=== PATIENT | male | born 1960 | race American Indian/Alaskan Native ===

== ENCOUNTER 2017-03-02 09:07 | Inpatient (IN) | payer OTHER ==
[2017-03-02] MEDS ORDERED: NACL 0.9% 1000 ML 1,000 ML IV ONE (11:16)
[2017-03-02] MEDS ORDERED: ZOFRAN IV ONE (11:16)
[2017-03-02 12:56] LABS: Basophils % (Auto) 0.2 % (0.0-1.8); Eosinophils % (Auto) 0.2 % (0.0-4.3); Hematocrit 44.9 % (35.5-45.6); Hemoglobin 14.4 gm/dl (11.8-15.2); Lymphocytes # (Auto) 1.4 K/mm3 (1.2-5.4); Lymphocytes % (Auto) 10.7 % (13.4-35.0); Mean Corpuscular HGB Conc 32 % (32-34); Mean Corpuscular Hemoglobin 26 pg (28-32); Mean Corpuscular Volume 81 fl (84-94); Monocytes # (Auto) 1.5 K/mm3 (0.0-0.8); Monocytes % (Auto) 11.2 % (0.0-7.3); Red Blood Count 5.54 M/mm3 (3.65-5.03)
[2017-03-02 13:04] LABS: Platelet Count 95 K/mm3 (140-440); Red Cell Distribution Width 21.1 % (13.2-15.2)
[2017-03-02 13:06] LABS: INR 1.4 (0.87-1.13)
[2017-03-02 13:20] LABS: Alanine Aminotransferase 82 units/L (7-56); Albumin 2.8 g/dL (3.9-5); BUN/Creatinine Ratio 18; Bilirubin,Direct 4.2 mg/dL (0-0.2); Blood Urea Nitrogen 9 mg/dL (9-20); Calcium 10.7 mg/dL (8.4-10.2); Hemolysis Index 26
[2017-03-02 13:53] LABS: Bacteria,Urine 1+ /HPF (Negative); Bilirubin,Urine MOD (Negative); Blood,Urine NEG (Negative); Color,Urine Amber (Yellow); Granular Casts,Urine 12 /LPF; Mucus,Urine 3+ /HPF; Nitrite,Urine NEG (Negative)
[2017-03-02 13:55] LABS: Ictotest,Urine Negative (Negative)
--- NOTE | 2017-03-02 14:04 | Cat Scan Report ---
CT ABDOMEN PELVIS WITH CONTRAST: HISTORY: abdominal pain. COMPARISON: none. TECHNIQUE: Helical CT in 1.25mm intervals following IV contrast. Sagittal and coronal reconstructions. FINDINGS: Lung bases: Trace right pleural effusion. The aerated lungs are clear. Liver: The liver is mildly enlarged with diffuse heterogeneity. Multiple liver masses are identified which are coalescent in the right hepatic lobe and measure up to 11 cm in diameter. There is suggestion of mild underlying cirrhotic changes. Biliary system: The gallbladder is collapsed. No obvious cholelithiasis or biliary dilatation. Pancreas: Normal. Spleen: Normal. Kidneys/ureters/bladder: Normal. Adrenal glands: Normal. Aorta: Normal. Intestines: Unremarkable given no oral contrast was administered. No evidence for obstruction or focal inflammation. No obvious GI mass. Appendix: Normal. Pelvic viscera: Normal. Ascites: Moderate ascites is noted. Adenopathy: None. Musculoskeletal: Normal. IMPRESSION: Multiple large and small liver masses are suspected most consistent with a metastatic process. Primary liver cancer could also be considered. Ascites. Trace right pleural effusion.
--- NOTE | 2017-03-02 14:56 | Emergency Department Report ---
ED Abdominal Pain HPI - General Chief Complaint: Abdominal Pain Stated Complaint: CHEST PAIN Time Seen by Provider: 03/02/17 11:12 Source: patient Mode of arrival: Stretcher Limitations: No Limitations - History of Present Illness Initial Comments: She is a 56-year-old -[place] male who is presenting with abdominal distention. Patient states that 3 weeks ago he went to [facility] and thinks he may have gotten into some bad seafood. He had several days of nausea vomiting. Patient states the last several days has had some abdominal distention and some epigastric pain. Patient states that he's noticed that his eyes are now yellowing. Patient states the pain is nonradiating in the epigastrium and rates it as a 5 out of 10 in severity. Patient does state he's had some mild constipation as well but states his last bowel movement was today. Patient denies fever chills chest pain shortness of breath at this time. MD Complaint: abdominal pain Location: epigastric Severity scale (0 -10): 5 Quality: fullness - Related Data Allergies Allergy/AdvReac Type Severity Reaction Status Date / Time No Known Allergies Allergy Unverified 03/02/17 11:22 ED Review of Systems ROS: Stated complaint: CHEST PAIN Other details as noted in HPI Comment: All other systems reviewed and negative ED Physical Exam - General Limitations: No Limitations General appearance: alert, in no apparent distress - Head Head exam: Present: atraumatic, normocephalic - Eye Eye exam: Present: scleral icterus - ENT ENT exam: Present: mucous membranes moist - Neck Neck exam: Present: normal inspection - Respiratory Respiratory exam: Present: normal lung sounds bilaterally. Absent: respiratory distress, wheezes, rales, rhonchi - Cardiovascular Cardiovascular Exam: Present: regular rate, normal rhythm, tachycardia. Absent : systolic murmur, diastolic murmur, rubs, gallop - GI/Abdominal GI/Abdominal exam: Present: soft, distended, tenderness (epigastric), normal bowel sounds. Absent: guarding, rebound, rigid - Rectal Rectal exam: Present: deferred - Extremities Exam Extremities exam: Present: normal inspection - Back Exam Back exam: Present: normal inspection - Neurological Exam Neurological exam: Present: alert, oriented X3 - Psychiatric Psychiatric exam: Present: normal affect, normal mood - Skin Skin exam: Present: warm, dry, intact, normal color. Absent: rash ED Course Vital Signs 03/02/17 09:48 Temperature 98.1 F Pulse Rate 137 H Respiratory 28 H Rate Blood Pressure 144/103 O2 Sat by Pulse 97 Oximetry ED Medical Decision Making - Lab Data Result diagrams: 03/02/17 12:32 03/02/17 12:32 - EKG Data -: EKG Interpreted by Me - EKG Data Interpretation: other (EKG shows sinus tachycardia with a rate of 132, normal axis normal intervals and no ST segment elevation or depressions time of interpretation 1106) - Medical Decision Making Is a 56-year-old [place] male who is presenting with jaundice with hyperbilirubinemia. Patient will be admitted for further workup. Critical care attestation.: If time is entered above; I have spent that time in minutes in the direct care of this critically ill patient, excluding procedure time. ED Disposition Clinical Impression: Hyperbilirubinemia, Hepatitis Disposition: DC-01 TO HOME OR SELFCARE Is pt being admited?: Yes Does the pt Need Aspirin: No Condition: Serious Referrals: PRIMARY CARE, [Primary Care Provider] - 3-5 Days
[2017-03-02] MEDS ORDERED: NACL 0.9% 1000 ML 1,000 ML ONE (18:42)
[2017-03-02] MEDS: NACL 0.9% 1000 ML 1,000 ML IV SCH (19:06)
[2017-03-02] MEDS ORDERED: AMBIEN PO PRN (21:01)
[2017-03-02] MEDS: HEPARIN SUB-Q SCH (22:27)
[2017-03-02] MEDS: MORPHINE IV PRN (22:31)
--- NOTE | 2017-03-02 23:43 | History and Physical Report ---
History of Present Illness Date of examination: 03/02/17 Date of admission: 03/02/17 14:58 Chief complaint: See dictated H/p in reports History of present illness: See dictated H/p in reports Medications and Allergies Allergies Allergy/AdvReac Type Severity Reaction Status Date / Time No Known Allergies Allergy Unverified 03/02/17 11:22 Home Medications Medication Instructions Recorded Confirmed Last Taken Type No Known Home Medications [No 03/02/17 03/02/17 Unknown History Reported Home Medications] Active Meds: Active Medications Heparin Sodium (Porcine) (Heparin) 5,000 unit SUB-Q Q8HR ADRIANE Last Admin: 03/02/17 22:27 Dose: 5,000 unit Sodium Chloride (Nacl 0.9% 1000 Ml) 1,000 mls @ 125 mls/hr IV DIRECT ADRIANE Last Admin: 03/02/17 19:06 Dose: 125 mls/hr Morphine Sulfate (Morphine) 2 mg IV Q4H PRN PRN Reason: Pain, Moderate (4-6) Last Admin: 03/02/17 22:31 Dose: 2 mg Zolpidem Tartrate (Ambien) 5 mg PO QHS PRN PRN Reason: Sleep Exam - Constitutional Vitals: Temp Pulse Resp BP Pulse Ox 97.4 F L 124 H 20 115/78 95 03/02/17 19:57 03/02/17 19:57 03/02/17 22:31 03/02/17 19:57 03/02/17 19:57 Results - Labs CBC & Chem 7: 03/02/17 12:32 03/02/17 12:32 Labs: Laboratory Last Values WBC 13.0 K/mm3 (4.5-11.0) H 03/02/17 12:32 RBC 5.54 M/mm3 (3.65-5.03) H 03/02/17 12:32 Hgb 14.4 gm/dl (11.8-15.2) 03/02/17 12:32 Hct 44.9 % (35.5-45.6) 03/02/17 12:32 MCV 81 fl (84-94) L 03/02/17 12:32 MCH 26 pg (28-32) L 03/02/17 12:32 MCHC 32 % (32-34) 03/02/17 12:32 RDW 21.1 % (13.2-15.2) H 03/02/17 12:32 Plt Count 95 K/mm3 (140-440) L 03/02/17 12:32 Lymph % (Auto) 10.7 % (13.4-35.0) L 03/02/17 12:32 [place] % (Auto) 11.2 % (0.0-7.3) H 03/02/17 12:32 Eos % (Auto) 0.2 % (0.0-4.3) 03/02/17 12:32 Baso % (Auto) 0.2 % (0.0-1.8) 03/02/17 12: Lymph # 1.4 K/mm3 (1.2-5.4) 03/02/17 12: [place] # 1.5 K/mm3 (0.0-0.8) H 03/02/17 12:32 Eos # 0.0 K/mm3 (0.0-0.4) 03/02/17 12: Baso # 0.0 K/mm3 (0.0-0.1) 03/02/17 12:32 Seg Neutrophils % 77.7 % (40.0-70.0) H 03/02/17 12: Seg Neutrophils # 10.1 K/mm3 (1.8-7.7) H 03/02/17 12:32 PT 17.9 Sec. (12.2-14.9) H 03/02/17 12:32 INR 1.40 (0.87-1.13) H 03/02/17 12:32 Sodium 130 mmol/L (137-145) L 03/02/17 12:32 Potassium 5.4 mmol/L (3.6-5.0) H 03/02/17 12:32 Chloride 92.7 mmol/L (98-107) L 03/02/17 12:32 Carbon Dioxide 24 mmol/L (22-30) 03/02/17 12:32 Anion Gap 19 mmol/L 03/02/17 12:32 BUN 9 mg/dL (9-20) 03/02/17 12:32 Creatinine 0.5 mg/dL (0.8-1.5) L 03/02/17 12:32 Estimated GFR > 60 ml/min 03/02/17 12:32 BUN/Creatinine Ratio 18 % 03/02/17 12:32 Glucose 96 mg/dL (75-100) 03/02/17 12:32 Calcium 10.7 mg/dL (8.4-10.2) H 03/02/17 12:32 Total Bilirubin 6.10 mg/dL (0.1-1.2) H 03/02/17 12:32 Direct Bilirubin 4.2 mg/dL (0-0.2) H 03/02/17 12:32 Indirect Bilirubin 1.9 mg/dL 03/02/17 12:32 AST 369 units/L (5-40) H 03/02/17 12:32 ALT 82 units/L (7-56) H 03/02/17 12:32 Alkaline Phosphatase 194 units/L (35-129) H 03/02/17 12:32 Total Protein 7.0 g/dL (6.3-8.2) 03/02/17 12:32 Albumin 2.8 g/dL (3.9-5) L 03/02/17 12:32 Albumin/Globulin Ratio 0.7 % 03/02/17 12:32 Amylase 124 units/L (27-131) 03/02/17 12:32 Lipase 194 units/L (13-60) H 03/02/17 12:32 Urine Color [place]ola (Yellow) 03/02/17 Unknown Urine Turbidity Clear (Clear) 03/02/17 Unknown Urine pH 5.0 (5.0-7.0) 03/02/17 Unknown Ur Specific [place] 1.030 (1.003-1.030) 03/02/17 Unknown Urine Protein 100 mg/dl mg/dL (Negative) 03/02/17 Unknown Urine Glucose (UA) 50 mg/dL (Negative) 03/02/17 Unknown Urine Ketones Neg mg/dL (Negative) 03/02/17 Unknown Urine Blood Neg (Negative) 03/02/17 Unknown Urine Nitrite Neg (Negative) 03/02/17 Unknown Urine Bilirubin Mod (Negative) 03/02/17 Unknown Urine Ictotest Negative (Negative) 03/02/17 Unknown Urine Urobilinogen 4.0 mg/dL (<2.0) 03/02/17 Unknown Ur Leukocyte Esterase Neg (Negative) 03/02/17 Unknown Urine WBC (Auto) 14.0 /HPF (0.0-6.0) H 03/02/17 Unknown Urine RBC (Auto) 12.0 /HPF (0.0-6.0) 03/02/17 Unknown U Epithel Cells (Auto) 4.0 /HPF (0-13.0) 03/02/17 Unknown Urine Bacteria (Auto) 1+ /HPF (Negative) 03/02/17 Unknown Granular Casts 12 /LPF 03/02/17 Unknown Urine Mucus 3+ /HPF 03/02/17 Unknown
[2017-03-03] MEDS: HEPARIN SUB-Q SCH ×3 (06:27→21:55)
[2017-03-03 06:30] LABS: Hepatitis A Antibody IgM Non-Reactive (NonReactive); Hepatitis B Core IgM Non-Reactive (NonReactive); Hepatitis B Surface Antigen Non-Reactive (Negative); Hepatitis C Virus Antibody Reactive (NonReactive)
[2017-03-03] MEDS: MORPHINE IV PRN ×3 (08:15→21:56)
--- NOTE | 2017-03-03 10:52 | Progress Note ---
Assessment and Plan Assessment and plan: 56M W no significant pmh who pw n/v and jaundice found to have multiple liver masses liver masses appears to be related to a metastatic process oncology and GI consult, will need a biopsy biliary obstruction -appears to be due to liver masses, workup as above Hepatitis C infection GI consulted Hyperkalemia kayexalate x1 Thrombocytopenia stable, likely due to acute on chronic CLD Coagulopathy likely due to CLD, repeat levels, if still elevated, may rx with VItamin K htn urgency optmize meds Sepsis/UTI empiric abx, fup urine cx History Interval history: Review of systems Constitutional: No fevers, no malaise, no joint pains CVS: No chest pain, no orthopnea, no dyspnea on exertion, no pedal edema GI: No abdominal pain, no diarrhea, no vomiting, no constipation Respiratory: No shortness of breath, no wheezing, no coughing Hospitalist Physical - Physical exam Narrative exam: General.: Appears well, no distress, nontoxic HEENT: Moist mucous membranes, extraocular muscles intact, no lymphadenopathy, scleral icterus Neck: supple Cardiac: S1-S2 heard Lungs: clear to auscultation bilaterally Abdomen: soft , nontender, nondistended, bowel sounds positive Shifting dullness on abdominal exam Extremities: no edema clubbing or cyanosis Skin: no rash or lesions Neurologic: no gross focal deficits Psych: appropriate behavior, appropriate mood, corporative, judgment intact - Constitutional Vitals: Temp Pulse Resp BP Pulse Ox 98.2 F 120 H 18 143/91 97 03/03/17 07:53 03/03/17 07:53 03/03/17 07:53 03/03/17 07:53 03/03/17 07:53 Results - Labs CBC & Chem 7: 03/02/17 12:32 03/03/17 12:41 Labs: Laboratory Last Values WBC 13.0 K/mm3 (4.5-11.0) H 03/02/17 12:32 RBC 5.54 M/mm3 (3.65-5.03) H 03/02/17 12:32 Hgb 14.4 gm/dl (11.8-15.2) 03/02/17 12:32 Hct 44.9 % (35.5-45.6) 03/02/17 12:32 MCV 81 fl (84-94) L 03/02/17 12:32 MCH 26 pg (28-32) L 03/02/17 12:32 MCHC 32 % (32-34) 03/02/17 12:32 RDW 21.1 % (13.2-15.2) H 03/02/17 12:32 Plt Count 95 K/mm3 (140-440) L 03/02/17 12:32 Lymph % (Auto) 10.7 % (13.4-35.0) L 03/02/17 12:32 [place] % (Auto) 11.2 % (0.0-7.3) H 03/02/17 12:32 Eos % (Auto) 0.2 % (0.0-4.3) 03/02/17 12:32 Baso % (Auto) 0.2 % (0.0-1.8) 03/02/17 12:32 Lymph # 1.4 K/mm3 (1.2-5.4) 03/02/17 12: [place] # 1.5 K/mm3 (0.0-0.8) H 03/02/17 12:32 Eos # 0.0 K/mm3 (0.0-0.4) 03/02/17 12:32 Baso # 0.0 K/mm3 (0.0-0.1) 03/02/17 12:32 Seg Neutrophils % 77.7 % (40.0-70.0) H 03/02/17 12: Seg Neutrophils # 10.1 K/mm3 (1.8-7.7) H 03/02/17 12:32 PT 17.9 Sec. (12.2-14.9) H 03/02/17 12:32 INR 1.40 (0.87-1.13) H 03/02/17 12:32 Sodium 130 mmol/L (137-145) L 03/02/17 12:32 Potassium 5.4 mmol/L (3.6-5.0) H 03/02/17 12:32 Chloride 92.7 mmol/L (98-107) L 03/02/17 12:32 Carbon Dioxide 24 mmol/L (22-30) 03/02/17 12:32 Anion Gap 19 mmol/L 03/02/17 12:32 BUN 9 mg/dL (9-20) 01/12/18 12:32 Creatinine 0.5 mg/dL (0.8-1.5) L 03/02/17 12:32 Estimated GFR > 60 ml/min 03/02/17 12:32 BUN/Creatinine Ratio 18 % 03/02/17 12:32 Glucose 96 mg/dL (75-100) 03/02/17 12:32 Calcium 10.7 mg/dL (8.4-10.2) H 03/02/17 12:32 Total Bilirubin 6.10 mg/dL (0.1-1.2) H 03/02/17 12:32 Direct Bilirubin 4.2 mg/dL (0-0.2) H 03/02/17 12:32 Indirect Bilirubin 1.9 mg/dL 03/02/17 12:32 AST 369 units/L (5-40) H 03/02/17 12:32 ALT 82 units/L (7-56) H 03/02/17 12:32 Alkaline Phosphatase 194 units/L (35-129) H 03/02/17 12:32 Total Protein 7.0 g/dL (6.3-8.2) 03/02/17 12:32 Albumin 2.8 g/dL (3.9-5) L 03/02/17 12:32 Albumin/Globulin Ratio 0.7 % 03/02/17 12:32 Amylase 124 units/L (27-131) 03/02/17 12:32 Lipase 194 units/L (13-60) H 03/02/17 12:32 Urine Color Lola (Yellow) 03/02/17 Unknown Urine Turbidity Clear (Clear) 03/02/17 Unknown Urine pH 5.0 (5.0-7.0) 03/02/17 Unknown Ur Specific [place] 1.030 (1.003-1.030) 03/02/17 Unknown Urine Protein 100 mg/dl mg/dL (Negative) 03/02/17 Unknown Urine Glucose (UA) 50 mg/dL (Negative) 03/02/17 Unknown Urine Ketones Neg mg/dL (Negative) 03/02/17 Unknown Urine Blood Neg (Negative) 03/02/17 Unknown Urine Nitrite Neg (Negative) 03/02/17 Unknown Urine Bilirubin Mod (Negative) 03/02/17 Unknown Urine Ictotest Negative (Negative) 03/02/17 Unknown Urine Urobilinogen 4.0 mg/dL (<2.0) 03/02/17 Unknown Ur Leukocyte Esterase Neg (Negative) 03/02/17 Unknown Urine WBC (Auto) 14.0 /HPF (0.0-6.0) H 03/02/17 Unknown Urine RBC (Auto) 12.0 /HPF (0.0-6.0) 03/02/17 Unknown U Epithel Cells (Auto) 4.0 /HPF (0-13.0) 03/02/17 Unknown Urine Bacteria (Auto) 1+ /HPF (Negative) 03/02/17 Unknown Granular Casts 12 /LPF 03/02/17 Unknown Urine Mucus 3+ /HPF 03/02/17 Unknown Hepatitis A IgM Ab Non-reactive (NonReactive) 03/03/17 05:28 Hep Bs Antigen Non-reactive (Negative) 03/03/17 05:28 Hep B Core IgM Ab Non-reactive (NonReactive) 03/03/17 05:28 Hepatitis C Antibody Reactive (NonReactive) A 03/03/17 05:28
[2017-03-03] MEDS ORDERED: ROCEPHIN/NS 1 GM/50 ML 1 GM/50 ML BAG IV SCH (11:00)
[2017-03-03] MEDS ORDERED: Fluarix Quad 2017-2018(36 MOS+ IM ONE (12:00)
[2017-03-03] MEDS ORDERED: KIONEX PO ONE (13:30)
[2017-03-03] MEDS: cefTRIAXone 1 GM in NACL 0.9% 20 ML IV SCH (13:41)
--- NOTE | 2017-03-03 17:47 | Hem/Onc Consultation ---
History of Present Illness - Reason for Consult Consult date: 03/03/17 liver masses - History of Present Illness Mr. Medina is a 56 yom with no significant PHMx who presented to [facility] with chest pain, jaundice, and constipation, found to have large intrahepatic masses on CT scan. Bilirubin is elevated, albumin and platelets are decreased. Mr Medina's pain feels better after treatment. He has a history of regular EtOH use, 2-3 drinks per day until 5 weeks ago. Hepatitis C antibody is reactive. 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 He has no known family history of cancer. Medications and Allergies Allergies Allergy/AdvReac Type Severity Reaction Status Date / Time No Known Allergies Allergy Unverified 03/02/17 11:22 Home Medications Medication Instructions Recorded Confirmed Last Taken Type No Known Home Medications [No 03/02/17 03/02/17 Unknown History Reported Home Medications] Active Meds: Active Medications Heparin Sodium (Porcine) (Heparin) 5,000 unit SUB-Q Q8HR [facility] Last Admin: 03/03/17 14:26 Dose: 5,000 unit Hydralazine HCl (Apresoline) 10 mg IV Q4H PRN PRN Reason: BP >160/100 Sodium Chloride (Nacl 0.9% 1000 Ml) 1,000 mls @ 125 mls/hr IV DIRECT [facility] Last Admin: 03/02/17 19:06 Dose: 125 mls/hr Ceftriaxone Sodium 1 gm/ (Sodium Chloride) 20 mls @ 20 mls/10 min IV Q24H ADRIANE Last Admin: 03/03/17 13:41 Dose: 20 mls/10 min Morphine Sulfate (Morphine) 2 mg IV Q4H PRN PRN Reason: Pain, Moderate (4-6) Last Admin: 03/03/17 08:15 Dose: 2 mg Zolpidem Tartrate (Ambien) 5 mg PO QHS PRN PRN Reason: Sleep Last Admin: 03/03/17 01:28 Dose: 5 mg Review of Systems Constitutional: fatigue Cardiovascular: chest pain Respiratory: no shortness of breath Gastrointestinal: abdominal pain, constipation, no nausea Musculoskeletal: no myalgias Integumentary: no rash Neurological: no confusion Exam - Constitutional Vitals: Last Vital Signs Temp 97.7 F 03/03/17 15:27 Pulse 120 H 03/03/17 07:53 Resp 18 03/03/17 15:27 BP 156/102 03/03/17 15:27 Pulse Ox 97 03/03/17 07:53 General appearance: no acute distress - Neck Neck: supple - Respiratory Respiratory effort: Positive: normal Respiratory: bilateral: CTA - Cardiovascular Rhythm: regular - Gastrointestinal General gastrointestinal: Present: other (rotund) - Integumentary Integumentary: warm, dry - Neurologic Neurologic: no focal deficits Results - Labs lab Results: Laboratory Results - last 24 hr 03/03/17 03/03/17 05:28 12:41 Potassium 6.0 H Hepatitis A IgM Ab Non-reactive Hep Bs Antigen Non-reactive Hep B Core IgM Ab Non-reactive Hepatitis C Antibody Reactive A - Imaging and cardiology CT scan - abdomen: report reviewed Assessment and Plan 1. Liver masses- appearance c/w metastatic disease, discussed this with Mr Medina. Will order CT chest, CEA, CA-19-9, AFP. Plan for CT guided biopsy of liver lesion, can reverse INR with FFP if necessary. Agree with GI consult for workup of primary lesion.
--- NOTE | 2017-03-03 18:45 | Gastroenterology Consultation ---
History of Present Illness - Reason for Consult Consult date: 03/03/17 Liver Masses Requesting physician: MARY RIOS - History of Present Illness The patient is a 56 yo male who came to the ER for abdominal distention, fatigue , and mild discomfort. He was noted to have ascites, and a CT scan was done. This showed what appears to be diffuse metastatic disease in the liver. He also had hepatitis screening done, and is HCV positive. Chest imaging is pending, but the A/P did not show any primary source of the tumor. He has never had an upper or lower endoscopy, and admit he rarely goes to a physician. Past History Past Medical History: hepatitis (New dx HCV) Past Surgical History: No surgical history Social history: smoking Family history: no significant family history Medications and Allergies Allergies Allergy/AdvReac Type Severity Reaction Status Date / Time No Known Allergies Allergy Unverified 03/02/17 11:22 Home Medications Medication Instructions Recorded Confirmed Last Taken Type No Known Home Medications [No 03/02/17 03/02/17 Unknown History Reported Home Medications] Active Meds: Active Medications Heparin Sodium (Porcine) (Heparin) 5,000 unit SUB-Q Q8HR [facility] Last Admin: 03/03/17 14:26 Dose: 5,000 unit Hydralazine HCl (Apresoline) 10 mg IV Q4H PRN PRN Reason: BP >160/100 Sodium Chloride (Nacl 0.9% 1000 Ml) 1,000 mls @ 125 mls/hr IV DIRECT ADRIANE Last Admin: 03/02/17 19:06 Dose: 125 mls/hr Ceftriaxone Sodium 1 gm/ (Sodium Chloride) 20 mls @ 20 mls/10 min IV Q24H [facility] Last Admin: 03/03/17 13:41 Dose: 20 mls/10 min Morphine Sulfate (Morphine) 2 mg IV Q4H PRN PRN Reason: Pain, Moderate (4-6) Last Admin: 03/03/17 08:15 Dose: 2 mg Zolpidem Tartrate (Ambien) 5 mg PO QHS PRN PRN Reason: Sleep Last Admin: 03/03/17 01:28 Dose: 5 mg I HAVE REVIEWED AND RECONCILED THE MEDICATIONS Review of Systems - Review of Systems All systems: negative (as noted in the HPI.) Exam - Constitutional Vital Signs: Temp Pulse Resp BP Pulse Ox 97.7 F 120 H 18 156/102 97 03/03/17 15:27 03/03/17 07:53 03/03/17 15:27 03/03/17 15:27 03/03/17 07:53 General appearance: no acute distress - EENT Eyes: PERRL, EOM intact, scleral icterus ENT: hearing intact, clear oral mucosa - Neck Neck: supple, normal ROM - Respiratory Respiratory effort: normal Respiratory: bilateral: CTA - Cardiovascular Rhythm: regular Heart Sounds: Present: S1 & S2 Extremities: no ischemia, No edema - Gastrointestinal General gastrointestinal: Present: soft, non-tender, distended (Moderate ascites ) - Integumentary Integumentary: Present: clear, warm, dry - Neurologic Neurological: alert and oriented x3 - Labs CBC & Chem 7: 03/02/17 12:32 03/03/17 12:41 Lab Results: Laboratory Results - last 24 hr 03/03/17 03/03/17 05:28 12:41 Potassium 6.0 H Hepatitis A IgM Ab Non-reactive Hep Bs Antigen Non-reactive Hep B Core IgM Ab Non-reactive Hepatitis C Antibody Reactive A Assessment and Plan - Patient Problems (1) Liver masses Current Visit: Yes Status: Acute Plan to address problem: - Multiple liver masses with ascites, likely malignancy based on appearance. - No obvious primary, so will get EGD/colon on Sunday (switch to clears in the AM). - However if chest CT shows obvious primary, or if the AFP is markedly elevated , no role for EGD/colonoscopy. (2) Hepatitis C antibody positive in blood Current Visit: Yes Status: Acute Plan to address problem: - Noted, but no role for treatment until hepatic lesions worked up further. (3) Ascites Current Visit: Yes Status: Acute Plan to address problem: - Also had HTN, and will start Maxzide as this will treat both problems.
[2017-03-03] MEDS: NACL 0.9% 1000 ML 1,000 ML IV SCH (20:43)
--- NOTE | 2017-03-03 23:05 | Cat Scan Report ---
FINAL REPORT EXAM: CT CHEST WO CON HISTORY: liver masses, staging COMPARISON: CT of the abdomen pelvis February 2017. TECHNIQUE: Contiguous axial images were obtained. Additional sagittal and coronal reformatted images were obtained. FINDINGS: Heart borderline to mildly enlarged. Ascending thoracic aorta measures 3.7 centimeters in diameter. Mild calcification of the thoracic aorta. There are enlarged intrathoracic lymph nodes. For example there is a right paratracheal lymph node measuring 13 x 13 millimeters. No enlarged axillary lymph nodes. Visualized thyroid gland is unremarkable. Tracheobronchial tree is patent. At the medial margin right lower lobe there is a noncalcified nodule measuring 7 millimeters. Just inferior to this there is a 2nd nodule measuring 8 millimeters. At the medial inferior margin left lower lobe there is a nodule measuring 10 x 6 millimeters. Mild elevation right hemidiaphragm. Nonspecific linear consolidation right middle lobe and right lower lobe which may reflect compressive atelectasis. Trace right-sided pleural effusion. Small to moderate amount of free fluid in the upper abdomen. Stable enlargement of the liver. Hepatic lesions seen on prior exam with IV contrast are not well delineated on this noncontrast exam. Please see recent CT abdomen pelvis further details. Bony thorax is grossly intact. Tiny hiatal hernia. IMPRESSION: There are least 2-3 nodules at the lung bases of uncertain etiology. Given the patient's history of multiple hepatic masses, this is concerning for pulmonary metastatic disease. There also enlarged intrathoracic lymph nodes which may be reactive or neoplastic. Nonspecific linear consolidations of the right lower lobe and right middle lobe which may reflect compressive atelectasis given the elevation right hemidiaphragm. Trace right-sided pleural effusion. Partial visualization of enlarged liver and small to moderate amount of free fluid in the upper abdomen. Please see CT of the abdomen pelvis from yesterday for further details of the patient's known liver masses.
[2017-03-04] MEDS: MORPHINE IV PRN ×5 (02:40→20:50)
[2017-03-04] MEDS: APRESOLINE IV PRN ×2 (04:32→23:44)
[2017-03-04] MEDS: NACL 0.9% 1000 ML 1,000 ML IV SCH ×2 (04:36→16:47)
[2017-03-04] MEDS: HEPARIN SUB-Q SCH ×3 (05:26→22:58)
[2017-03-04 07:00] LABS: Basophils % (Auto) 0.2 % (0.0-1.8); Eosinophils # (Auto) 0.1 K/mm3 (0.0-0.4); Eosinophils % (Auto) 0.5 % (0.0-4.3); Hemoglobin 13.2 gm/dl (11.8-15.2); Lymphocytes # (Auto) 1.3 K/mm3 (1.2-5.4); Lymphocytes % (Auto) 11.6 % (13.4-35.0); Mean Corpuscular HGB Conc 33 % (32-34); Mean Corpuscular Hemoglobin 27 pg (28-32); Mean Corpuscular Volume 81 fl (84-94); Monocytes # (Auto) 1.3 K/mm3 (0.0-0.8); Monocytes % (Auto) 12.1 % (0.0-7.3); Red Blood Count 4.96 M/mm3 (3.65-5.03)
[2017-03-04 07:04] LABS: Platelet Count 89 K/mm3 (140-440)
[2017-03-04 07:09] LABS: INR 1.39 (0.87-1.13)
[2017-03-04 07:10] LABS: Partial Thromboplastin Time 28.2 Sec. (24.2-36.6)
[2017-03-04 07:12] LABS: Alanine Aminotransferase 85 units/L (7-56); Albumin 2.5 g/dL (3.9-5); BUN/Creatinine Ratio 20; Blood Urea Nitrogen 8 mg/dL (9-20); Calcium 10.3 mg/dL (8.4-10.2); Hemolysis Index 4
--- NOTE | 2017-03-04 07:41 | Progress Note ---
Assessment and Plan Assessment and plan: 56M W no significant pmh who pw n/v and jaundice found to have multiple liver masses liver masses appears to be related to a metastatic process oncology and GI consult appreciated, will need a biopsy CT chest, image reviewed, 3 pulmonary nodules appear to be metastatic -for egd and cscope tomorrow, and will plan for liver biopsy on Sunday biliary obstruction -appears to be due to liver masses, workup as above Hepatitis C infection GI consulted Hyperkalemia kayexalate x1, now resolved Thrombocytopenia stable, likely due to acute on chronic CLD Coagulopathy likely due to CLD, mild and stable htn urgency optmize meds, improved Sepsis/UTI empiric abx, fup urine cx History Interval history: Review of systems Constitutional: No fevers, no malaise, no joint pains CVS: No chest pain, no orthopnea, no dyspnea on exertion, no pedal edema GI: No abdominal pain, no diarrhea, no vomiting, no constipation Respiratory: No shortness of breath, no wheezing, no coughing Hospitalist Physical - Physical exam Narrative exam: General.: Appears well, no distress, nontoxic HEENT: Moist mucous membranes, extraocular muscles intact, no lymphadenopathy, scleral icterus Neck: supple Cardiac: S1-S2 heard Lungs: clear to auscultation bilaterally Abdomen: soft , nontender, nondistended, bowel sounds positive Shifting dullness on abdominal exam Extremities: no edema clubbing or cyanosis Skin: no rash or lesions Neurologic: no gross focal deficits Psych: appropriate behavior, appropriate mood, corporative, judgment intact - Constitutional Vitals: Temp Pulse Resp BP Pulse Ox 98.1 F 117 H 18 123/67 96 03/04/17 04:21 03/04/17 04:32 03/04/17 04:21 03/04/17 05:24 03/04/17 04:22 Results - Labs CBC & Chem 7: 03/04/17 06:00 03/04/17 06:00 Labs: Laboratory Last Values WBC 10.8 K/mm3 (4.5-11.0) 03/04/17 06:00 RBC 4.96 M/mm3 (3.65-5.03) 03/04/17 06:00 Hgb 13.2 gm/dl (11.8-15.2) 03/04/17 06:00 Hct 40.0 % (35.5-45.6) 03/04/17 06:00 MCV 81 fl (84-94) L 03/04/17 06:00 MCH 27 pg (28-32) L 03/04/17 06:00 MCHC 33 % (32-34) 03/04/17 06:00 RDW 21.0 % (13.2-15.2) H 03/04/17 06:00 Plt Count 89 K/mm3 (140-440) L 03/04/17 06:00 Lymph % (Auto) 11.6 % (13.4-35.0) L 03/04/17 06:00 [place] % (Auto) 12.1 % (0.0-7.3) H 03/04/17 06:00 Eos % (Auto) 0.5 % (0.0-4.3) 03/04/17 06:00 Baso % (Auto) 0.2 % (0.0-1.8) 03/04/17 06:00 Lymph # 1.3 K/mm3 (1.2-5.4) 03/04/17 06:00 [place] # 1.3 K/mm3 (0.0-0.8) H 03/04/17 06:00 Eos # 0.1 K/mm3 (0.0-0.4) 03/04/17 06:00 Baso # 0.0 K/mm3 (0.0-0.1) 03/04/17 06:00 Seg Neutrophils % 75.6 % (40.0-70.0) H 03/04/17 06:00 Seg Neutrophils # 8.2 K/mm3 (1.8-7.7) H 03/04/17 06:00 PT 17.8 Sec. (12.2-14.9) H 03/04/17 06:00 INR 1.39 (0.87-1.13) H 03/04/17 06:00 APTT 28.2 Sec. (24.2-36.6) 03/04/17 06:00 Sodium 128 mmol/L (137-145) L 03/04/17 06:00 Potassium 4.9 mmol/L (3.6-5.0) 03/04/17 06:00 Chloride 92.4 mmol/L (98-107) L 03/04/17 06:00 Carbon Dioxide 23 mmol/L (22-30) 03/04/17 06:00 Anion Gap 18 mmol/L 03/04/17 06:00 BUN 8 mg/dL (9-20) L 03/04/17 06:00 Creatinine 0.4 mg/dL (0.8-1.5) L 03/04/17 06:00 Estimated GFR > 60 ml/min 03/04/17 06:00 BUN/Creatinine Ratio 20 % 03/04/17 06:00 Glucose 95 mg/dL (75-100) 03/04/17 06:00 Calcium 10.3 mg/dL (8.4-10.2) H 03/04/17 06:00 Total Bilirubin 6.50 mg/dL (0.1-1.2) H 03/04/17 06:00 Direct Bilirubin 5.0 mg/dL (0-0.2) H 03/04/17 06:00 Indirect Bilirubin 1.5 mg/dL 03/04/17 06:00 AST 370 units/L (5-40) H 03/04/17 06:00 ALT 85 units/L (7-56) H 03/04/17 06:00 Alkaline Phosphatase 183 units/L (35-129) H 03/04/17 06:00 Total Protein 6.7 g/dL (6.3-8.2) 03/04/17 06:00 Albumin 2.5 g/dL (3.9-5) L 03/04/17 06:00 Albumin/Globulin Ratio 0.6 % 03/04/17 06:00 Amylase 124 units/L (27-131) 03/02/17 12:32 Lipase 194 units/L (13-60) H 03/02/17 12:32 Urine Color [place]ola (Yellow) 03/02/17 Unknown Urine Turbidity Clear (Clear) 03/02/17 Unknown Urine pH 5.0 (5.0-7.0) 03/02/17 Unknown Ur Specific [place] 1.030 (1.003-1.030) 03/02/17 Unknown Urine Protein 100 mg/dl mg/dL (Negative) 03/02/17 Unknown Urine Glucose (UA) 50 mg/dL (Negative) 03/02/17 Unknown Urine Ketones Neg mg/dL (Negative) 03/02/17 Unknown Urine Blood Neg (Negative) 03/02/17 Unknown Urine Nitrite Neg (Negative) 03/02/17 Unknown Urine Bilirubin Mod (Negative) 03/02/17 Unknown Urine Ictotest Negative (Negative) 03/02/17 Unknown Urine Urobilinogen 4.0 mg/dL (<2.0) 03/02/17 Unknown Ur Leukocyte Esterase Neg (Negative) 03/02/17 Unknown Urine WBC (Auto) 14.0 /HPF (0.0-6.0) H 03/02/17 Unknown Urine RBC (Auto) 12.0 /HPF (0.0-6.0) 03/02/17 Unknown U Epithel Cells (Auto) 4.0 /HPF (0-13.0) 03/02/17 Unknown Urine Bacteria (Auto) 1+ /HPF (Negative) 03/02/17 Unknown Granular Casts 12 /LPF 03/02/17 Unknown Urine Mucus 3+ /HPF 03/02/17 Unknown Hepatitis A IgM Ab Non-reactive (NonReactive) 03/03/17 05:28 Hep Bs Antigen Non-reactive (Negative) 03/03/17 05:28 Hep B Core IgM Ab Non-reactive (NonReactive) 03/03/17 05:28 Hepatitis C Antibody Reactive (NonReactive) A 03/03/17 05:28
[2017-03-04] MEDS: MAXZIDE-25 PO SCH (09:49)
[2017-03-04] MEDS ORDERED: VITAMIN K (ADULT ONLY) ONE (09:55)
[2017-03-04] MEDS: VITAMIN K (ADULT ONLY) SUB-Q SCH (10:00)
[2017-03-04] MEDS: cefTRIAXone 1 GM in NACL 0.9% 20 ML IV SCH (12:03)
--- NOTE | 2017-03-04 18:10 | Hem/Onc Progress Note ---
Assessment and Plan 1. liver masses- likely metastatic disease. Chest CT with small lung nodules, paratracheal node. PET scan outpatient will help determine if these areas are malignant. Endoscopy tomorrow, liver biopsy Sunday. Tumor markers pending. Subjective Date of service: 03/04/17 Interval history: ongoing prep for endoscopy tomorrow. + bloating. Objective - Constitutional Vitals: Last Vital Signs Temp 97.8 F 03/04/17 15:39 Pulse 135 H 03/04/17 15:39 Resp 22 03/04/17 15:39 BP 145/99 03/04/17 15:39 Pulse Ox 96 03/04/17 15:39 General appearance: no acute distress - Neck Neck: supple - Cardiovascular Rhythm: regular - Gastrointestinal General gastrointestinal: Present: other (ascites) - Integumentary Integumentary: warm, dry - Neurologic Neurologic: moves all extremities - Labs Lab Results: Laboratory Results - last 24 hr 03/04/17 03/04/17 03/04/17 06:00 06:00 06:00 WBC 10.8 RBC 4.96 Hgb 13.2 Hct 40.0 MCV 81 L MCH 27 L MCHC 33 RDW 21.0 H Plt Count 89 L Lymph % (Auto) 11.6 L [place] % (Auto) 12.1 H Eos % (Auto) 0.5 Baso % (Auto) 0.2 Lymph # 1.3 [place] # 1.3 H Eos # 0.1 Baso # 0.0 Seg Neutrophils % 75.6 H Seg Neutrophils # 8.2 H PT 17.8 H INR 1.39 H APTT 28.2 Sodium 128 L Potassium 4.9 Chloride 92.4 L Carbon Dioxide 23 Anion Gap 18 BUN 8 L Creatinine 0.4 L Estimated GFR > 60 BUN/Creatinine Ratio 20 Glucose 95 Calcium 10.3 H Total Bilirubin 6.50 H Direct Bilirubin 5.0 H Indirect Bilirubin 1.5 AST 370 H ALT 85 H Alkaline Phosphatase 183 H Total Protein 6.7 Albumin 2.5 L Albumin/Globulin Ratio 0.6
[2017-03-04] MEDS ORDERED: GOLYTELY PO ONE (20:00)
--- NOTE | 2017-03-04 20:24 | Gastroenterology Progress Note ---
Assessment and Plan - Patient Problems (1) Liver masses Current Visit: Yes Status: Acute Plan to address problem: - Multiple liver masses with ascites, likely malignancy based on appearance. - No obvious primary, so will get EGD/colon on Sunday (switch to clears in the AM). - CT chest has LN, but no obvious primary. - EGD/colon will be for diagnostic purposes only given mild coagulopathy (can do biopsies of masses, but would avoid polypectomy). (2) Hepatitis C antibody positive in blood Current Visit: Yes Status: Acute Plan to address problem: - Noted, but no role for treatment until hepatic lesions worked up further. (3) Ascites Current Visit: Yes Status: Acute Plan to address problem: - Also had HTN, and will continue Maxzide as this will treat both problems. - Sodium down somewhat and will need to be monitored. Subjective Date of service: 03/04/17 Principal diagnosis: Abnormal CT Liver Interval history: The patient is stable without abdominal pain or N/V. He is anxious to obtain biopsies for underlying disease. Objective - Constitutional Vitals: Temp Pulse Resp BP Pulse Ox 97.8 F 135 H 22 145/99 96 03/04/17 15:39 03/04/17 15:39 03/04/17 15:39 03/04/17 15:39 03/04/17 15:39 General appearance: no acute distress - Respiratory Respiratory effort: normal Respiratory: bilateral: CTA - Cardiovascular Rhythm: regular Heart Sounds: Present: S1 & S2 - Gastrointestinal General gastrointestinal: Present: soft, non-tender, distended (Moderate ascites ) - Labs CBC & Chem 7: 03/04/17 06:00 03/04/17 06:00 Labs: Laboratory Results - last 24 hr 03/04/17 03/04/17 03/04/17 06:00 06:00 06:00 WBC 10.8 RBC 4.96 Hgb 13.2 Hct 40.0 MCV 81 L MCH 27 L MCHC 33 RDW 21.0 H Plt Count 89 L Lymph % (Auto) 11.6 L [place] % (Auto) 12.1 H Eos % (Auto) 0.5 Baso % (Auto) 0.2 Lymph # 1.3 [place] # 1.3 H Eos # 0.1 Baso # 0.0 Seg Neutrophils % 75.6 H Seg Neutrophils # 8.2 H PT 17.8 H INR 1.39 H APTT 28.2 Sodium 128 L Potassium 4.9 Chloride 92.4 L Carbon Dioxide 23 Anion Gap 18 BUN 8 L Creatinine 0.4 L Estimated GFR > 60 BUN/Creatinine Ratio 20 Glucose 95 Calcium 10.3 H Total Bilirubin 6.50 H Direct Bilirubin 5.0 H Indirect Bilirubin 1.5 AST 370 H ALT 85 H Alkaline Phosphatase 183 H Total Protein 6.7 Albumin 2.5 L Albumin/Globulin Ratio 0.6
[2017-03-05] MEDS: HEPARIN SUB-Q SCH ×3 (05:50→22:37)
[2017-03-05] MEDS ORDERED: WATER FOR IRRIG STERILE IR ONE (08:13)
--- NOTE | 2017-03-05 08:47 | Hem/Onc Progress Note ---
Assessment and Plan He is to get GI workup today and liver biopsy tomorrow. Patient also has positive hepatitis C. Awaiting tumor markers also. Subjective Date of service: 03/05/17 Interval history: Patient without any new complaints. Objective - Constitutional Vitals: Last Vital Signs Temp 98.4 F 03/05/17 07:55 Pulse 123 H 03/05/17 07:55 Resp 18 03/05/17 07:55 BP 149/91 03/05/17 07:55 Pulse Ox 97 03/05/17 07:55 Pain Intensity (0-10): denies any pain General appearance: no acute distress Performance status: 3-limited selfcare - Neck Neck: supple - Respiratory Respiratory effort: Positive: normal Respiratory: bilateral: diminished - Cardiovascular Rhythm: regular - Gastrointestinal General gastrointestinal: Present: distended
[2017-03-05] MEDS: NACL 0.9% 1000 ML 1,000 ML IV SCH (09:06)
[2017-03-05] MEDS ORDERED: DIPRIVAN 10 MG/ML IV ONE ×3 (09:48→09:49)
--- NOTE | 2017-03-05 09:56 | Anesthesia Consultation ---
Anesthesia Consult and Med Hx Date of service: 03/05/17 - Airway Anesthetic Teeth Evaluation: Good ROM Head & Neck: Adequate Mental/Hyoid Distance: Adequate Mallampati Class: Class II Intubation Access Assessment: Probably Good - Pre-Operative Health Status ASA Pre-Surgery Classification: ASA3 Proposed Anesthetic Plan: MAC - Pulmonary Hx Asthma: No COPD: No Hx Pneumonia: No - Cardiovascular System Hx Hypertension: Yes - Endocrine Hx End Stage Renal Disease: No Hx Liver Disease: Yes (hepatitis, liver mass?) - Other Systems Hx Obesity: Yes (BMI 39.6)
--- NOTE | 2017-03-05 09:57 | Anesthesia Day of Surgery ---
Anesthesia Day of Surgery - Day of Surgery Patient Examined: Yes Patient H&P Reviewed: Yes Patient is NPO: Yes
[2017-03-05] MEDS ORDERED: ADRENALIN ONE (10:14)
--- NOTE | 2017-03-05 10:48 | Operative Report ---
Operative Report Operative Report: Date of procedure: 03/05/2017 Procedure: Esophagogastroduodenoscopy with biopsies of the antrum for H. pylori Preprocedure diagnosis: Hepatic masses suggestive of metastatic cancer. Rule out gastric cancer. History of cirrhosis. Post procedure diagnosis: 1+ esophageal varices. Mild erosive antral gastritis. Multiple shallow duodenal bulb ulcers. Endoscopist: Dr. Rm Anesthesia: Monitored anesthesia care per anesthesia department Medications: Propofol per anesthesia Estimated blood loss: 0 After careful discussion of the nature and purpose of the procedure as well as details the technique risks benefits and alternatives consent was obtained. The patient was placed in the left lateral decubitus position and medicated per anesthesia. The tip of the [employer] EQ 570 video scope was passed per orum under direct vision into the esophagus and advanced into the stomach and descending duodenum. The proximal descending duodenum and the duodenal bulb revealed multiple shallow ulcers and erosions. No deep ulcers or visible vessels were present. The pylorus was symmetrical and normal. The scope was withdrawn into the stomach and the stomach then gently insufflated with air. The antrum revealed multiple punctate erosions but no deep ulcers. Biopsies were taken to assess for possible H. pylori infection. The stomach was further insufflated and the scope was then retroflexed and partially withdrawn. The cardia, fundus, and body of the stomach were within normal limits and easily distensible.The scope was then withdrawn in the forward position. The esophagogastric junction was at 42 cm. There were multiple small varices in the distal third of the esophagus, 1+ in size which disappeared with insufflation of the esophageal body. The esophageal body was otherwise normal throughout. The procedure was was well tolerated and the patient was observed in recovery. Impressions: 1+ esophageal varices. Erosive antral gastritis, mild. Erosive duodenitis, moderate. No suggestion of neoplastic disease. Plan: Await pathology. Further evaluation with colonoscopy. Electronically signed: Ramesh Rm MD
--- NOTE | 2017-03-05 10:52 | Operative Report ---
Operative Report Operative Report: Date of procedure: 03/05/2017 Preprocedure diagnosis: Metastatic disease to the liver by CT scan, rule out colon cancer Post procedure diagnosis: 3 medium to large size polyps which do not suggest malignancy by appearance Procedure: Colonoscopy to the cecum with snare polypectomy 3, 1 with epinephrine injection. Endoscopist: Dr. Rm Anesthesia: Monitored anesthesia care per anesthesia department Estimated blood loss: 0 Medications: Monitored anesthesia care. See separate report by anesthesia for details. After careful discussion of the nature and purpose of the procedure as well as details of the technique risks benefits and alternatives the patient gave consent. Please see recent history and physical from the office. The patient was placed in the left lateral decubitus position and medicated per anesthesia. A rectal exam was performed sphincter tone was normal there were no masses palpable. The [employer] 570 scope was passed transanally and advanced under continuous direct vision without difficulty to the cecum. The colon was well prepared. The colonic mucosa was notably edematous throughout. The cecum was normal. The ascending colon revealed a 7 mm pedunculated polyp. The polyp was removed with snare electrocautery without difficulty. No bleeding was encountered. The ascending colon otherwise was normal and on forward and retroflexed views. The transverse colon was normal. There was a 1 cm polyp on a short stalk in the descending colon. The polyp was removed with snare electrocautery without difficulty. No bleeding was encountered. There was a 1.5 cm polyp on a long, thick stalk present in the sigmoid colon. It was elected to inject the polyp stalk with 1 mL of 1-10,000 epinephrine in light of the risk of bleeding from a thick stalk. The polyp was then removed with snare electrocautery without difficulty. No bleeding was encountered. The rectum was normal on forward and retroflexed views. The procedure was well-tolerated overall and the patient was observed in recovery. Conclusions: 3 polyps, medium size. None with a suggestion of malignancy by appearance. Status post polypectomy 3 with 1 requiring epinephrine injection Plan: Await pathology, however I would recommend proceeding with CT guided biopsy of the liver masses as these polyps do not suggest malignancy. Signed electronically: Ramesh Rm M.D.
--- NOTE | 2017-03-05 13:12 | Progress Note ---
Assessment and Plan Assessment and plan: 56M W no significant pmh who pw n/v and jaundice found to have multiple liver masses liver masses appears to be related to a metastatic process oncology and GI consult appreciated, will need a biopsy CT chest, image reviewed, 3 pulmonary nodules appear to be metastatic -sp egd and cscope which was unrevealing -for liver biopsy and paracentesis-w cytology tomorrow -may be multifocal HCC given hep C Ascites for paracentesis with fluid analysis and cytology tomorrow dc ivf biliary obstruction -appears to be due to liver masses, workup as above Hepatitis C infection GI consulted Hyperkalemia kayexalate x1, now resolved Thrombocytopenia stable, likely due to acute on chronic CLD Coagulopathy likely due to CLD, mild and stable htn urgency optmize meds, improved Sepsis/UTI empiric abx, fup urine cx History Interval history: Review of systems Constitutional: No fevers, no malaise, no joint pains CVS: No chest pain, no orthopnea, no dyspnea on exertion, no pedal edema GI: No abdominal pain, no diarrhea, no vomiting, no constipation Respiratory: No shortness of breath, no wheezing, no coughing Hospitalist Physical - Physical exam Narrative exam: General.: Appears well, no distress, nontoxic HEENT: Moist mucous membranes, extraocular muscles intact, no lymphadenopathy, scleral icterus Neck: supple Cardiac: S1-S2 heard Lungs: clear to auscultation bilaterally Abdomen: soft , nontender, nondistended, bowel sounds positive Shifting dullness on abdominal exam Extremities: no edema clubbing or cyanosis Skin: no rash or lesions Neurologic: no gross focal deficits Psych: appropriate behavior, appropriate mood, corporative, judgment intact - Constitutional Vitals: Temp Pulse Resp BP Pulse Ox 98.7 F 121 H 18 140/93 97 03/05/17 10:41 03/05/17 11:11 03/05/17 11:11 03/05/17 11:11 03/05/17 11:11 Results - Labs CBC & Chem 7: 03/04/17 06:00 03/04/17 06:00 Labs: Laboratory Last Values WBC 10.8 K/mm3 (4.5-11.0) 03/04/17 06:00 RBC 4.96 M/mm3 (3.65-5.03) 03/04/17 06:00 Hgb 13.2 gm/dl (11.8-15.2) 03/04/17 06:00 Hct 40.0 % (35.5-45.6) 03/04/17 06:00 MCV 81 fl (84-94) L 03/04/17 06:00 MCH 27 pg (28-32) L 03/04/17 06:00 MCHC 33 % (32-34) 03/04/17 06:00 RDW 21.0 % (13.2-15.2) H 03/04/17 06:00 Plt Count 89 K/mm3 (140-440) L 03/04/17 06:00 Lymph % (Auto) 11.6 % (13.4-35.0) L 03/04/17 06:00 [place] % (Auto) 12.1 % (0.0-7.3) H 03/04/17 06:00 Eos % (Auto) 0.5 % (0.0-4.3) 03/04/17 06:00 Baso % (Auto) 0.2 % (0.0-1.8) 03/04/17 06:00 Lymph # 1.3 K/mm3 (1.2-5.4) 03/04/17 06:00 [place] # 1.3 K/mm3 (0.0-0.8) H 03/04/17 06:00 Eos # 0.1 K/mm3 (0.0-0.4) 03/04/17 06:00 Baso # 0.0 K/mm3 (0.0-0.1) 03/04/17 06:00 Seg Neutrophils % 75.6 % (40.0-70.0) H 03/04/17 06:00 Seg Neutrophils # 8.2 K/mm3 (1.8-7.7) H 03/04/17 06:00 PT 17.8 Sec. (12.2-14.9) H 03/04/17 06:00 INR 1.39 (0.87-1.13) H 03/04/17 06:00 APTT 28.2 Sec. (24.2-36.6) 03/04/17 06:00 Sodium 128 mmol/L (137-145) L 03/04/17 06:00 Potassium 4.9 mmol/L (3.6-5.0) 03/04/17 06:00 Chloride 92.4 mmol/L (98-107) L 03/04/17 06:00 Carbon Dioxide 23 mmol/L (22-30) 03/04/17 06:00 Anion Gap 18 mmol/L 03/04/17 06:00 BUN 8 mg/dL (9-20) L 03/04/17 06:00 Creatinine 0.4 mg/dL (0.8-1.5) L 03/04/17 06:00 Estimated GFR > 60 ml/min 03/04/17 06:00 BUN/Creatinine Ratio 20 % 03/04/17 06:00 Glucose 95 mg/dL (75-100) 03/04/17 06:00 Calcium 10.3 mg/dL (8.4-10.2) H 03/04/17 06:00 Total Bilirubin 6.50 mg/dL (0.1-1.2) H 03/04/17 06:00 Direct Bilirubin 5.0 mg/dL (0-0.2) H 03/04/17 06:00 Indirect Bilirubin 1.5 mg/dL 03/04/17 06:00 AST 370 units/L (5-40) H 03/04/17 06:00 ALT 85 units/L (7-56) H 03/04/17 06:00 Alkaline Phosphatase 183 units/L (35-129) H 03/04/17 06:00 Total Protein 6.7 g/dL (6.3-8.2) 03/04/17 06:00 Albumin 2.5 g/dL (3.9-5) L 03/04/17 06:00 Albumin/Globulin Ratio 0.6 % 03/04/17 06:00 Amylase 124 units/L (27-131) 03/02/17 12:32 Lipase 194 units/L (13-60) H 03/02/17 12:32 Urine Color [place] (Yellow) 03/02/17 Unknown Urine Turbidity Clear (Clear) 03/02/17 Unknown Urine pH 5.0 (5.0-7.0) 03/02/17 Unknown Ur Specific [place] 1.030 (1.003-1.030) 03/02/17 Unknown Urine Protein 100 mg/dl mg/dL (Negative) 03/02/17 Unknown Urine Glucose (UA) 50 mg/dL (Negative) 03/02/17 Unknown Urine Ketones Neg mg/dL (Negative) 03/02/17 Unknown Urine Blood Neg (Negative) 03/02/17 Unknown Urine Nitrite Neg (Negative) 03/02/17 Unknown Urine Bilirubin Mod (Negative) 03/02/17 Unknown Urine Ictotest Negative (Negative) 03/02/17 Unknown Urine Urobilinogen 4.0 mg/dL (<2.0) 03/02/17 Unknown Ur Leukocyte Esterase Neg (Negative) 03/02/17 Unknown Urine WBC (Auto) 14.0 /HPF (0.0-6.0) H 03/02/17 Unknown Urine RBC (Auto) 12.0 /HPF (0.0-6.0) 03/02/17 Unknown U Epithel Cells (Auto) 4.0 /HPF (0-13.0) 03/02/17 Unknown Urine Bacteria (Auto) 1+ /HPF (Negative) 03/02/17 Unknown Granular Casts 12 /LPF 03/02/17 Unknown Urine Mucus 3+ /HPF 03/02/17 Unknown Hepatitis A IgM Ab Non-reactive (NonReactive) 03/03/17 05:28 Hep Bs Antigen Non-reactive (Negative) 03/03/17 05:28 Hep B Core IgM Ab Non-reactive (NonReactive) 03/03/17 05:28 Hepatitis C Antibody Reactive (NonReactive) A 03/03/17 05:28
--- NOTE | 2017-03-05 13:22 | Post Anesthesia Evaluation ---
- Post Anesthesia Evaluation Patient Participated: Yes Airway Patent: Yes Stable Respiratory Function: Yes Nausea/Vomiting: No Temp > 96.8F: Yes Pain Manageable: Yes Adequeate Hydration: Yes Anesthesia Complications: No
--- NOTE | 2017-03-05 15:28 | Procedure Note ---
Date of procedure: 03/05/17 Pre-op diagnosis: ascites, liver mass Post-op diagnosis: same Procedure: US paracentesis Findings: see report Anesthesia: local Surgeon: BEVERLY VILLA Estimated blood loss: none Pathology: list (120cc) Specimen disposition: to lab Condition: stable Disposition: floor
[2017-03-05 16:44] LABS: Total Cells Counted 100 /mm3
[2017-03-05] MEDS: MORPHINE IV PRN (16:47)
[2017-03-05] MEDS: MAXZIDE-25 PO SCH (17:33)
[2017-03-05] MEDS: cefTRIAXone 1 GM in NACL 0.9% 20 ML IV SCH (17:34)
[2017-03-05] MEDS: VITAMIN K (ADULT ONLY) SUB-Q SCH (18:47)
[2017-03-06] MEDS: MORPHINE IV PRN ×2 (02:52→11:35)
[2017-03-06] MEDS: HEPARIN SUB-Q SCH ×3 (06:16→23:19)
--- NOTE | 2017-03-06 07:18 | Ultrasound Report ---
ULTRASOUND PARACENTESIS HISTORY: Ascites. DESCRIPTION OF PROCEDURE: Informed consent was obtained. Sterile technique was utilized. 1% lidocaine for skin anesthesia. Using ultrasound guidance, a 5 [place] centesis needle was advanced into the right peritoneal space. There was spontaneous return of yellow, slightly cloudy fluid. 2.8 L of fluid were aspirated. 120 cc of fluid was sent to the laboratory for analysis. No complications. IMPRESSION: Successful ultrasound guided paracentesis as described.
[2017-03-06] MEDS ORDERED: SUBLIMAZE ONE (08:27)
[2017-03-06] MEDS ORDERED: VERSED IV ONE ×2 (08:27→08:36)
[2017-03-06] MEDS ORDERED: SUBLIMAZE IV ONE (08:36)
--- NOTE | 2017-03-06 09:17 | Procedure Note ---
Date of procedure: 03/06/17 Pre-op diagnosis: liver mass Post-op diagnosis: same Procedure: CT liver biopsy Findings: multiple liver masses Anesthesia: other (moderate sedation) Surgeon: BEVERLY VILLA Estimated blood loss: none Pathology: list (20G core x 3) Specimen disposition: to lab Condition: stable Disposition: floor
--- NOTE | 2017-03-06 09:37 | Cat Scan Report ---
CT BIOPSY LIVER HISTORY: Liver mass. DESCRIPTION OF PROCEDURE: Informed consent was obtained. Sterile technique was utilized. Moderate sedation was accomplished with Versed and fentanyl. The patient was sedated for 20 minutes. Independent cardiorespiratory monitoring by RN. Intra-observer time was [address] guidance, a 19-gauge introducer needle was advanced to the leading edge of an approximate 10 cm coalescent mass in the anterior right hepatic lobe. Three 2.2 cm 20-gauge core biopsies were obtained. Pathology was present to evaluate the samples. No complications. IMPRESSION: Successful CT-guided biopsy of a large right hepatic lobe mass as described.
[2017-03-06] MEDS: MAXZIDE-25 PO SCH (10:01)
[2017-03-06] MEDS: VITAMIN K (ADULT ONLY) SUB-Q SCH (10:02)
--- NOTE | 2017-03-06 10:37 | Event Note ---
Date: 03/06/17 Patient is s/p EGD and colonoscopy yesterday that revealed 1+esophageal varices , mild erosive antral gastritis, multiple shallow duodenal bulb ulcers, and colon polyps but no suggestion of malignancy. Bx results pending. Will follow up path. Liver bx pending for today.
[2017-03-06] MEDS: cefTRIAXone 1 GM in NACL 0.9% 20 ML IV SCH (11:36)
--- NOTE | 2017-03-06 12:45 | Discharge Summary ---
Providers - Providers Date of Admission: 03/02/17 14:58 Attending physician: MARY RIOS MD 03/03/17 10:49 Consult to Physician [CONS] Routine Consulting Provider: SARAH SHANKAR Reason For Exam: LIVER MASSES Place consult to:: DR Shankar Notified:: yes Phone number called:: [phone] Was contact made?: Yes If yes, spoke with:: Rafael Time called:: 11:14 Consult to Physician [CONS] Routine Consulting Provider: THOMAS PIERSON Reason For Exam: LIVER MASS Place consult to:: DR Pierson Notified:: yes Phone number called:: [phone] Was contact made?: Yes If yes, spoke with:: keanu Primary care physician: COUNSELLING PSYCHOLOGIST Hospitalization Condition: Serious Exam - Constitutional Vitals: Temp Pulse Resp BP Pulse Ox 98.0 F 126 H 25 H 142/98 97 03/06/17 07:48 03/06/17 09:20 03/06/17 09:20 03/06/17 09:20 03/06/17 09:46 Plan Follow up with: SONG LEE MD [Primary Care Provider] - 3-5 Days
--- NOTE | 2017-03-06 16:20 | Progress Note ---
Assessment and Plan Assessment and plan: 56M W no significant pmh who pw n/v and jaundice found to have multiple liver masses liver masses appears to be related to a metastatic process oncology and GI consult appreciated, CT chest, image reviewed, 3 pulmonary nodules appear to be metastatic -sp egd and cscope ; showed 1+esophageal varices, mild erosive antral gastritis , multiple shallow duodenal bulb ulcers, and colon polyps but no suggestion of malignancy -sp liver biopsy and 2.8 liter ascitic removed by paracentesis-w cytology tomorrow -may be multifocal HCC given hep C Ascites for paracentesis with fluid analysis and cytology tomorrow dc ivf Tachycardia -EKG show ST -given likely malignancy at increased risk of VTE -obtain CT angio to r/o PE -cardiology consult Bilat lower extremity Edema -obtain doppler -lasix IV biliary obstruction -appears to be due to liver masses, workup as above Hepatitis C infection GI consulted Hyperkalemia kayexalate x1, now resolved Thrombocytopenia stable, likely due to acute on chronic CLD Coagulopathy likely due to CLD, mild and stable htn urgency optmize meds, improved Sepsis/UTI empiric abx, fup urine cx History Interval history: no chest pain c/o sob abdominal distension is improved since paracentesis constipation now resolved, c/o LE edema R>L Hospitalist Physical - Physical exam Narrative exam: General.: Appears well, no distress, nontoxic HEENT: Moist mucous membranes, extraocular muscles intact, no lymphadenopathy, scleral icterus Neck: supple Cardiac: S1-S2 heard Lungs: clear to auscultation bilaterally Abdomen: soft , nontender, distended with shifting dullness, bowel sounds positive Shifting dullness on abdominal exam Extremities: 2 plus bipedal edema Skin: no rash or lesions Neurologic: no gross focal deficits Psych: appropriate behavior, appropriate mood, corporative, judgment intact - Constitutional Vitals: Temp Pulse Resp BP Pulse Ox 98.0 F 126 H 25 H 142/98 97 03/06/17 07:48 03/06/17 09:20 03/06/17 09:20 03/06/17 09:20 03/06/17 09:46 Results - Labs CBC & Chem 7: 03/04/17 06:00 03/04/17 06:00 Labs: Laboratory Last Values WBC 10.8 K/mm3 (4.5-11.0) 03/04/17 06:00 RBC 4.96 M/mm3 (3.65-5.03) 03/04/17 06:00 Hgb 13.2 gm/dl (11.8-15.2) 03/04/17 06:00 Hct 40.0 % (35.5-45.6) 03/04/17 06:00 MCV 81 fl (84-94) L 03/04/17 06:00 MCH 27 pg (28-32) L 03/04/17 06:00 MCHC 33 % (32-34) 03/04/17 06:00 RDW 21.0 % (13.2-15.2) H 03/04/17 06:00 Plt Count 89 K/mm3 (140-440) L 03/04/17 06:00 Lymph % (Auto) 11.6 % (13.4-35.0) L 03/04/17 06:00 [place] % (Auto) 12.1 % (0.0-7.3) H 03/04/17 06:00 Eos % (Auto) 0.5 % (0.0-4.3) 03/04/17 06:00 Baso % (Auto) 0.2 % (0.0-1.8) 03/04/17 06:00 Lymph # 1.3 K/mm3 (1.2-5.4) 03/04/17 06:00 [place] # 1.3 K/mm3 (0.0-0.8) H 03/04/17 06:00 Eos # 0.1 K/mm3 (0.0-0.4) 03/04/17 06:00 Baso # 0.0 K/mm3 (0.0-0.1) 03/04/17 06:00 Seg Neutrophils % 75.6 % (40.0-70.0) H 03/04/17 06:00 Seg Neutrophils # 8.2 K/mm3 (1.8-7.7) H 03/04/17 06:00 PT 17.8 Sec. (12.2-14.9) H 03/04/17 06:00 INR 1.39 (0.87-1.13) H 03/04/17 06:00 APTT 28.2 Sec. (24.2-36.6) 03/04/17 06:00 Sodium 128 mmol/L (137-145) L 03/04/17 06:00 Potassium 4.9 mmol/L (3.6-5.0) 03/04/17 06:00 Chloride 92.4 mmol/L (98-107) L 03/04/17 06:00 Carbon Dioxide 23 mmol/L (22-30) 03/04/17 06:00 Anion Gap 18 mmol/L 03/04/17 06:00 BUN 8 mg/dL (9-20) L 03/04/17 06:00 Creatinine 0.4 mg/dL (0.8-1.5) L 03/04/17 06:00 Estimated GFR > 60 ml/min 03/04/17 06:00 BUN/Creatinine Ratio 20 % 03/04/17 06:00 Glucose 95 mg/dL (75-100) 03/04/17 06:00 Calcium 10.3 mg/dL (8.4-10.2) H 03/04/17 06:00 Total Bilirubin 6.50 mg/dL (0.1-1.2) H 03/04/17 06:00 Direct Bilirubin 5.0 mg/dL (0-0.2) H 03/04/17 06:00 Indirect Bilirubin 1.5 mg/dL 03/04/17 06:00 AST 370 units/L (5-40) H 03/04/17 06:00 ALT 85 units/L (7-56) H 03/04/17 06:00 Alkaline Phosphatase 183 units/L (35-129) H 03/04/17 06:00 Total Protein 6.7 g/dL (6.3-8.2) 03/04/17 06:00 Albumin 2.5 g/dL (3.9-5) L 03/04/17 06:00 Albumin/Globulin Ratio 0.6 % 03/04/17 06:00 Amylase 124 units/L (27-131) 03/02/17 12:32 Lipase 194 units/L (13-60) H 03/02/17 12:32 Urine Color Lola (Yellow) 03/02/17 Unknown Urine Turbidity Clear (Clear) 03/02/17 Unknown Urine pH 5.0 (5.0-7.0) 03/02/17 Unknown Ur Specific [place] 1.030 (1.003-1.030) 03/02/17 Unknown Urine Protein 100 mg/dl mg/dL (Negative) 03/02/17 Unknown Urine Glucose (UA) 50 mg/dL (Negative) 03/02/17 Unknown Urine Ketones Neg mg/dL (Negative) 03/02/17 Unknown Urine Blood Neg (Negative) 03/02/17 Unknown Urine Nitrite Neg (Negative) 03/02/17 Unknown Urine Bilirubin Mod (Negative) 03/02/17 Unknown Urine Ictotest Negative (Negative) 03/02/17 Unknown Urine Urobilinogen 4.0 mg/dL (<2.0) 03/02/17 Unknown Ur Leukocyte Esterase Neg (Negative) 03/02/17 Unknown Urine WBC (Auto) 14.0 /HPF (0.0-6.0) H 03/02/17 Unknown Urine RBC (Auto) 12.0 /HPF (0.0-6.0) 03/02/17 Unknown U Epithel Cells (Auto) 4.0 /HPF (0-13.0) 03/02/17 Unknown Urine Bacteria (Auto) 1+ /HPF (Negative) 03/02/17 Unknown Granular Casts 12 /LPF 03/02/17 Unknown Urine Mucus 3+ /HPF 03/02/17 Unknown Fluid Type Ascitic 03/05/17 Unknown Fluid Color Yellow 03/05/17 Unknown Fluid Appearance Hazy 03/05/17 Unknown Fluid WBC 280 /mm3 03/05/17 Unknown Fluid RBC 3700 /mm3 03/05/17 Unknown Fluid Seg Neutrophils 29.0 % 03/05/17 Unknown Fluid Lymphocytes 44.0 % 03/05/17 Unknown Fluid Reactive Lymphs 0 % 03/05/17 Unknown Fluid Monocytes 24.0 % 03/05/17 Unknown Fluid Eosinophils 3.0 % 03/05/17 Unknown Fluid Basophils 0 % 03/05/17 Unknown Hepatitis A IgM Ab Non-reactive (NonReactive) 03/03/17 05:28 Hep Bs Antigen Non-reactive (Negative) 03/03/17 05:28 Hep B Core IgM Ab Non-reactive (NonReactive) 03/03/17 05:28 Hepatitis C Antibody Reactive (NonReactive) A 03/03/17 05:28
[2017-03-06] MEDS: LASIX IV SCH (18:40)
--- NOTE | 2017-03-06 22:03 | Hem/Onc Progress Note ---
Assessment and Plan - Patient Problems (1) Liver masses Current Visit: Yes Status: Acute Plan to address problem: Await biopsy results. Outpatient follow up stressed. He agrees. Subjective Date of service: 03/06/17 Interval history: No new complains. Objective - Constitutional Vitals: Last Vital Signs Temp 100.2 F H 03/06/17 20:06 Pulse 149 H 03/06/17 20:06 Resp 24 03/06/17 20:06 BP 149/101 03/06/17 20:06 Pulse Ox 96 03/06/17 20:06 Pain Intensity (0-10): denies any pain - EENT ENT: hearing intact - Respiratory Respiratory: bilateral: CTA
--- NOTE | 2017-03-06 22:24 | Cat Scan Report ---
FINAL REPORT PROCEDURE: CT ANGIO CHEST TECHNIQUE: Computerized tomographic angiography of the chest was performed after the IV injection of iodinated nonionic contrast including image processing. The image data was postprocessed using 2-dimensional multiplanar reformatted (MPR) and 3-dimensional (MIP and/or volume rendered) techniques. HISTORY: tachycardia, and sob COMPARISON: No prior studies are available for comparison. FINDINGS: Heart and pericardium: Normal. Thoracic aorta: Normal. Pulmonary vasculature: Normal. Lymph nodes: There are enlarged subcarinal lymph nodes present, measuring 14 millimeters short axis. Lungs: There are 3 noncalcified nodular densities at the right lung base, measuring up to 7 millimeters. There is patchy airspace opacity abutting the right hemidiaphragm, likely related to atelectasis. Pleural space: No effusion, thickening, or pneumothorax. Musculoskeletal structures: No significant abnormality. Upper abdominal structures: Free fluid is seen in the upper abdomen. IMPRESSION: No evidence of pulmonary emboli Right lung base nodules, measuring up to 7 millimeters
[2017-03-07] MEDS: LOPRESSOR IV SCH ×3 (03:03→20:57)
[2017-03-07] MEDS: MAXZIDE-25 PO SCH (11:46)
--- NOTE | 2017-03-07 12:25 | Consultation ---
History of Present Illness Consult date: 03/07/17 Requesting physician: MARY RIOS Consult reason: tachycardia History of present illness: This is a 56-year-old F Chinese gentleman with history of EtOH use was found to have abdominal distention and found to have a intrahepatic mass probable cancer has been on IV diuretics and beta carl being consulted by cardiology first persistent sinus tachycardia on review of the youth nutritional monitor patient in sinus tachycardia no H fibrillation noted. Patient was also has thrombocytopenia and present has some mild shortness of breath but denies any palpitations or syncope. Or abdominal pain or nausea or vomiting at present was present on admission Past History Past Medical History: hepatitis (New dx HCV) Past Surgical History: No surgical history Social history: smoking, alcohol abuse Family history: no significant family history Medications and Allergies Allergies Allergy/AdvReac Type Severity Reaction Status Date / Time No Known Allergies Allergy Unverified 03/02/17 11:22 Home Medications Medication Instructions Recorded Confirmed Last Taken Type No Known Home Medications [No 03/02/17 03/02/17 Unknown History Reported Home Medications] Active Meds: Active Medications Heparin Sodium (Porcine) (Heparin) 5,000 unit SUB-Q Q8HR [facility] Last Admin: 03/06/17 23:19 Dose: 5,000 unit Hydralazine HCl (Apresoline) 10 mg IV Q4H PRN PRN Reason: BP >160/100 Last Admin: 03/04/17 23:44 Dose: 10 mg Ceftriaxone Sodium 1 gm/ (Sodium Chloride) 20 mls @ 20 mls/10 min IV Q24H [facility] Last Admin: 03/06/17 11:36 Dose: 20 mls/10 min Metoprolol Tartrate (Lopressor) 50 mg PO TID [facility] Morphine Sulfate (Morphine) 2 mg IV Q4H PRN PRN Reason: Pain, Moderate (4-6) Last Admin: 03/06/17 11:35 Dose: 2 mg Zolpidem Tartrate (Ambien) 5 mg PO QHS PRN PRN Reason: Sleep Last Admin: 03/03/17 01:28 Dose: 5 mg Review of Systems All systems: negative Physical Examination Vital Signs Temp Pulse Resp BP Pulse Ox 98.1 F 137 H 28 H 144/103 97 03/02/17 09:48 03/02/17 09:48 03/02/17 09:48 03/02/17 09:48 03/02/17 09:48 General appearance: no acute distress, mild distress HEENT: Positive: PERRL, EOMI Neck: Positive: neck supple Cardiac: Positive: Reg Rate and Rhythm, Tachycardia Lungs: Positive: clear to auscultation Neuro: Positive: Grossly Intact Abdomen: Positive: Soft Extremities: Present: normal. Absent: edema Results 03/04/17 06:00 03/04/17 06:00 - Imaging and Cardiology Echo: pending EKG interpretations - Telemetry EKG Rhythm: Sinus Tachycardia Assessment and Plan Persistent sinus tachycardia EtOH use Hepatitis C Intrahepatic mass Thrombocytopenia Shortness of breath Hypertension Recommend CT of the chest was negative for pulmonary embolism trace pleural effusion. Awaiting echocardiogram will suggest holding IV Lasix increased beta carl in view of use of esophageal varices check labs today and will continue to monitor patient with you
[2017-03-07] MEDS: MORPHINE IV PRN (13:42)
--- NOTE | 2017-03-07 13:43 | Progress Note ---
Assessment and Plan Assessment and plan: 56M W no significant pmh who pw n/v and jaundice found to have multiple liver masses liver masses appears to be related to a metastatic process oncology and GI consult appreciated, CT chest, image reviewed, 3 pulmonary nodules appear to be metastatic -sp egd and colonoscopy ; showed 1+esophageal varices, mild erosive antral gastritis, multiple shallow duodenal bulb ulcers, and colon polyps but no suggestion of malignancy -sp liver biopsy and 2.8 liter ascitic removed by paracentesis-w cytology tomorrow -may be multifocal HCC given hep C Ascites s/p paracentesis [2.8 lt removed] follow fluid analysis and cytology dc ivf Tachycardia -EKG show ST -given likely malignancy at increased risk of VTE -obtain CT angio to r/o PE -cardiology consult Bilat lower extremity Edema -obtain doppler -lasix IV biliary obstruction -appears to be due to liver masses, workup as above Hepatitis C infection GI consulted Hyperkalemia kayexalate x1, now resolved Thrombocytopenia stable, likely due to acute on chronic CLD Coagulopathy likely due to CLD, mild and stable htn urgency optmize meds, improved Sepsis/UTI empiric abx, fup urine cx DVT prophylaxis; SCDs No pharmacologic anticoagulation in view of coagulopathy Plan of care discussed with the patient and his nurse Consults and recommendations noted and appreciated History Interval history: Patient seen and evaluated, medical records reviewed She feels slightly better, heart rate in 100 -106 range No new events reported by the nursing staff Vital signs reviewed Hospitalist Physical - Constitutional Vitals: Temp Pulse Resp BP Pulse Ox 98.1 F 130 H 24 137/95 99 03/07/17 12:24 03/07/17 12:24 03/07/17 12:24 03/07/17 12:24 03/07/17 12:24 General appearance: Present: mild distress, well-nourished, obese - EENT Eyes: Present: PERRL, EOM intact - Neck Neck: Present: supple, normal ROM - Respiratory Respiratory effort: normal Respiratory: bilateral: diminished, negative: rales, rhonchi, wheezing - Cardiovascular Rhythm: regular Heart Sounds: Present: S1 & S2 (tachycardia) - Extremities Extremities: no ischemia Extremity abnormal: edema - Abdominal General gastrointestinal: soft, non-tender, distended, normal bowel sounds - Integumentary Integumentary: Present: clear, warm - Psychiatric Psychiatric: appropriate mood/affect, cooperative - Neurologic Neurologic: moves all extremities Results - Labs CBC & Chem 7: 03/07/17 13:00 03/07/17 13:00 Labs: Laboratory Last Values WBC 10.8 K/mm3 (4.5-11.0) 03/04/17 06:00 RBC 4.96 M/mm3 (3.65-5.03) 03/04/17 06:00 Hgb 13.2 gm/dl (11.8-15.2) 03/04/17 06:00 Hct 40.0 % (35.5-45.6) 03/04/17 06:00 MCV 81 fl (84-94) L 03/04/17 06:00 MCH 27 pg (28-32) L 03/04/17 06:00 MCHC 33 % (32-34) 03/04/17 06:00 RDW 21.0 % (13.2-15.2) H 03/04/17 06:00 Plt Count 89 K/mm3 (140-440) L 03/04/17 06:00 Lymph % (Auto) 11.6 % (13.4-35.0) L 03/04/17 06:00 [place] % (Auto) 12.1 % (0.0-7.3) H 03/04/17 06:00 Eos % (Auto) 0.5 % (0.0-4.3) 03/04/17 06:00 Baso % (Auto) 0.2 % (0.0-1.8) 03/04/17 06:00 Lymph # 1.3 K/mm3 (1.2-5.4) 03/04/17 06:00 [place] # 1.3 K/mm3 (0.0-0.8) H 03/04/17 06:00 Eos # 0.1 K/mm3 (0.0-0.4) 03/04/17 06:00 Baso # 0.0 K/mm3 (0.0-0.1) 03/04/17 06:00 Seg Neutrophils % 75.6 % (40.0-70.0) H 03/04/17 06:00 Seg Neutrophils # 8.2 K/mm3 (1.8-7.7) H 03/04/17 06:00 PT 17.8 Sec. (12.2-14.9) H 03/04/17 06:00 INR 1.39 (0.87-1.13) H 03/04/17 06:00 APTT 28.2 Sec. (24.2-36.6) 03/04/17 06:00 Sodium 128 mmol/L (137-145) L 03/04/17 06:00 Potassium 4.9 mmol/L (3.6-5.0) 03/04/17 06:00 Chloride 92.4 mmol/L (98-107) L 03/04/17 06:00 Carbon Dioxide 23 mmol/L (22-30) 03/04/17 06:00 Anion Gap 18 mmol/L 03/04/17 06:00 BUN 8 mg/dL (9-20) L 03/04/17 06:00 Creatinine 0.4 mg/dL (0.8-1.5) L 03/04/17 06:00 Estimated GFR > 60 ml/min 03/04/17 06:00 BUN/Creatinine Ratio 20 % 03/04/17 06:00 Glucose 95 mg/dL (75-100) 03/04/17 06:00 Calcium 10.3 mg/dL (8.4-10.2) H 03/04/17 06:00 Total Bilirubin 6.50 mg/dL (0.1-1.2) H 03/04/17 06:00 Direct Bilirubin 5.0 mg/dL (0-0.2) H 03/04/17 06:00 Indirect Bilirubin 1.5 mg/dL 03/04/17 06:00 AST 370 units/L (5-40) H 03/04/17 06:00 ALT 85 units/L (7-56) H 03/04/17 06:00 Alkaline Phosphatase 183 units/L (35-129) H 03/04/17 06:00 Total Protein 6.7 g/dL (6.3-8.2) 03/04/17 06:00 Albumin 2.5 g/dL (3.9-5) L 03/04/17 06:00 Albumin/Globulin Ratio 0.6 % 03/04/17 06:00 Amylase 124 units/L (27-131) 03/02/17 12:32 Lipase 194 units/L (13-60) H 03/02/17 12:32 Urine Color [place] (Yellow) 03/02/17 Unknown Urine Turbidity Clear (Clear) 03/02/17 Unknown Urine pH 5.0 (5.0-7.0) 03/02/17 Unknown Ur Specific [place] 1.030 (1.003-1.030) 03/02/17 Unknown Urine Protein 100 mg/dl mg/dL (Negative) 03/02/17 Unknown Urine Glucose (UA) 50 mg/dL (Negative) 03/02/17 Unknown Urine Ketones Neg mg/dL (Negative) 03/02/17 Unknown Urine Blood Neg (Negative) 03/02/17 Unknown Urine Nitrite Neg (Negative) 03/02/17 Unknown Urine Bilirubin Mod (Negative) 03/02/17 Unknown Urine Ictotest Negative (Negative) 03/02/17 Unknown Urine Urobilinogen 4.0 mg/dL (<2.0) 03/02/17 Unknown Ur Leukocyte Esterase Neg (Negative) 03/02/17 Unknown Urine WBC (Auto) 14.0 /HPF (0.0-6.0) H 03/02/17 Unknown Urine RBC (Auto) 12.0 /HPF (0.0-6.0) 03/02/17 Unknown U Epithel Cells (Auto) 4.0 /HPF (0-13.0) 03/02/17 Unknown Urine Bacteria (Auto) 1+ /HPF (Negative) 03/02/17 Unknown Granular Casts 12 /LPF 03/02/17 Unknown Urine Mucus 3+ /HPF 03/02/17 Unknown Fluid Type Ascitic 03/05/17 Unknown Fluid Color Yellow 03/05/17 Unknown Fluid Appearance Hazy 03/05/17 Unknown Fluid WBC 280 /mm3 03/05/17 Unknown Fluid RBC 3700 /mm3 03/05/17 Unknown Fluid Diff Comment 03/05/17 Unknown Fluid Seg Neutrophils 29.0 % 03/05/17 Unknown Fluid Lymphocytes 44.0 % 03/05/17 Unknown Fluid Reactive Lymphs 0 % 03/05/17 Unknown Fluid Monocytes 24.0 % 03/05/17 Unknown Fluid Eosinophils 3.0 % 03/05/17 Unknown Fluid Basophils 0 % 03/05/17 Unknown Hepatitis A IgM Ab Non-reactive (NonReactive) 03/03/17 05:28 Hep Bs Antigen Non-reactive (Negative) 03/03/17 05:28 Hep B Core IgM Ab Non-reactive (NonReactive) 03/03/17 05:28 Hepatitis C Antibody Reactive (NonReactive) A 03/03/17 05:28
[2017-03-07 13:45] LABS: Hematocrit 41.1 % (35.5-45.6); Hemoglobin 13.6 gm/dl (11.8-15.2); Mean Corpuscular HGB Conc 33 % (32-34); Mean Corpuscular Hemoglobin 27 pg (28-32); Mean Corpuscular Volume 81 fl (84-94); Red Blood Count 5.09 M/mm3 (3.65-5.03)
[2017-03-07 13:50] LABS: Platelet Count 73 K/mm3 (140-440); Red Cell Distribution Width 21.7 % (13.2-15.2)
[2017-03-07 13:59] LABS: Alanine Aminotransferase 140 units/L (7-56); Albumin 2.5 g/dL (3.9-5); BUN/Creatinine Ratio 24; Blood Urea Nitrogen 19 mg/dL (9-20); Calcium 10.7 mg/dL (8.4-10.2); Hemolysis Index 15
[2017-03-07] MEDS: LOPRESSOR PO SCH ×2 (14:01→23:24)
[2017-03-07] MEDS: cefTRIAXone 1 GM in NACL 0.9% 20 ML IV SCH (15:37)
[2017-03-07] MEDS: HEPARIN SUB-Q SCH ×4 (15:37→23:27)
--- NOTE | 2017-03-07 15:55 | Gastroenterology Progress Note ---
Assessment and Plan - Patient Problems (1) Ascites Current Visit: Yes Status: Acute Plan to address problem: Likely has cirrhosis, although malignant ascites is possible. S/p 2.8 liter tap. Cytology pending. Would minimize IVF, salt load. (2) Liver masses Current Visit: Yes Status: Acute Plan to address problem: I suspect multifocal HCC. Path is pending. (3) Colon polyps Current Visit: Yes Status: Acute Plan to address problem: Await path although the polyps look benign endoscopically. Subjective Date of service: 03/07/17 Principal diagnosis: Abnormal CT Liver Interval history: The patient reports no pain. Objective - Constitutional Vitals: Temp Pulse Resp BP Pulse Ox 98.1 F 130 H 24 137/95 99 03/07/17 12:24 03/07/17 12:24 03/07/17 12:24 03/07/17 12:24 03/07/17 12:24 General appearance: no acute distress - EENT ENT: hearing intact, clear oral mucosa, dentition normal - Neck Neck: supple, normal ROM - Respiratory Respiratory effort: normal Respiratory: bilateral: CTA - Cardiovascular Rhythm: regular - Gastrointestinal General gastrointestinal: Present: soft, non-tender, non-distended, normal bowel sounds - Neurologic Neurological: alert and oriented x3 - Labs CBC & Chem 7: 03/07/17 13:00 03/07/17 13:00 Labs: Laboratory Results - last 24 hr 03/05/17 03/07/17 03/07/17 Unknown 13:00 13:00 WBC 11.7 H RBC 5.09 H Hgb 13.6 Hct 41.1 MCV 81 L MCH 27 L MCHC 33 RDW 21.7 H Plt Count 73 L Sodium 128 L Potassium 5.0 Chloride 89.0 L Carbon Dioxide 24 Anion Gap 20 BUN 19 Creatinine 0.8 D Estimated GFR > 60 BUN/Creatinine Ratio 24 Glucose 94 Calcium 10.7 H Total Bilirubin 8.80 H AST 659 H ALT 140 H Alkaline Phosphatase 180 H Total Protein 6.7 Albumin 2.5 L Albumin/Globulin Ratio 0.6 Fluid Diff Comment
[2017-03-07] MEDS: LASIX IV SCH (20:57)
[2017-03-08] MEDS: HEPARIN SUB-Q SCH (07:01)
[2017-03-08 07:05] LABS: Total Protein,Body Fluid < 3.0 (15.0-45.0)
[2017-03-08 07:12] LABS: Alanine Aminotransferase 138 units/L (7-56); Albumin 2.6 g/dL (3.9-5); BUN/Creatinine Ratio 30; Blood Urea Nitrogen 24 mg/dL (9-20); Calcium 10.5 mg/dL (8.4-10.2); Hemolysis Index 19
--- NOTE | 2017-03-08 10:33 | Gastroenterology Progress Note ---
Assessment and Plan - Patient Problems (1) Ascites Current Visit: Yes Status: Acute Plan to address problem: May be increasing. The exam is insensitive due to obesity, however. Needs low salt diet, diuretics. Await cytology. (2) Liver masses Current Visit: Yes Status: Acute Plan to address problem: Suspected malignancy, possibly multifocal HCC in light of hepatitis C and probable cirrhosis. Await path report. (3) Colon polyps Current Visit: Yes Status: Acute Plan to address problem: All polyps are benign. Patient informed. Subjective Date of service: 03/08/17 Principal diagnosis: Abnormal CT Liver Interval history: Feels ok. Objective - Constitutional Vitals: Temp Pulse Resp BP Pulse Ox 98.1 F 114 H 20 145/91 99 03/08/17 05:23 03/08/17 05:23 03/08/17 05:23 03/08/17 05:23 03/08/17 05:23 General appearance: no acute distress - EENT ENT: hearing intact, clear oral mucosa, dentition normal - Respiratory Respiratory effort: normal Respiratory: bilateral: CTA - Cardiovascular Rhythm: regular - Gastrointestinal General gastrointestinal: Present: soft, non-tender, distended (mild distention , obese), normal bowel sounds. Absent: hepatomegaly, splenomegaly, mass - Neurologic Neurological: alert and oriented x3 - Labs CBC & Chem 7: 03/07/17 13:00 03/08/17 05:34 Labs: Laboratory Results - last 24 hr 03/03/17 03/05/17 03/07/17 18:15 Unknown 13:00 WBC 11.7 H RBC 5.09 H Hgb 13.6 Hct 41.1 MCV 81 L MCH 27 L MCHC 33 RDW 21.7 H Plt Count 73 L Sodium Potassium Chloride Carbon Dioxide Anion Gap BUN Creatinine Estimated GFR BUN/Creatinine Ratio Glucose Calcium Total Bilirubin AST ALT Alkaline Phosphatase Total Protein Albumin Albumin/Globulin Ratio CA 19-9 Antigen 147 H Fluid Diff Comment Fluid Total Protein < 3.0 L Fluid Albumin 0.8 03/07/17 03/08/17 13:00 05:34 WBC RBC Hgb Hct MCV MCH MCHC RDW Plt Count Sodium 128 L 128 L Potassium 5.0 5.3 H Chloride 89.0 L 88.5 L Carbon Dioxide 24 24 Anion Gap 20 21 BUN 19 24 H Creatinine 0.8 D 0.8 Estimated GFR > 60 > 60 BUN/Creatinine Ratio 24 30 Glucose 94 66 L Calcium 10.7 H 10.5 H Total Bilirubin 8.80 H 9.30 H AST 659 H 628 H ALT 140 H 138 H Alkaline Phosphatase 180 H 186 H Total Protein 6.7 6.3 Albumin 2.5 L 2.6 L Albumin/Globulin Ratio 0.6 0.7 CA 19-9 Antigen Fluid Diff Comment Fluid Total Protein Fluid Albumin
[2017-03-08] MEDS: LOPRESSOR PO SCH (10:56)
--- NOTE | 2017-03-08 11:25 | Progress Note ---
Assessment and Plan sinus tachycardia ascities hep c htn liver mass thrombocytopenia rec: increase lopressro 100mg bid, cont lasix and aldactone as per jasbir raza from [facility] point for view for discharge Subjective Date of service: 03/08/17 Principal diagnosis: Abnormal CT Liver Interval history: pt wants to go home and sob is not present Objective Vital Signs Temp Pulse Pulse Resp BP BP Pulse Ox 03/08/17 10:56 119 H 132/83 03/08/17 09:54 98.2 F 112 H 22 133/88 97 03/08/17 05:23 98.1 F 114 H 20 145/91 99 03/08/17 00:04 98.2 F 94 H 20 109/72 94 03/07/17 23:24 98 H 121/92 03/07/17 22:00 99 03/07/17 21:53 98 H 03/07/17 21:49 98.1 F 105 H 20 121/92 03/07/17 21:40 98.1 F 105 H 20 121/92 98 03/07/17 15:54 98.4 F 93 H 20 141/98 99 03/07/17 12:24 98.1 F 130 H 24 137/95 99 - Physical Examination General: No Apparent Distress HEENT: Positive: PERRL, EOMI Neck: Positive: neck supple Cardiac: Positive: Reg Rate and Rhythm, Tachycardia Lungs: Positive: clear to auscultation Neuro: Positive: Grossly Intact Abdomen: Positive: Soft Extremities: Present: normal, edema (tracwe) - Labs and Meds Cardiac Enzymes 03/07/17 03/08/17 Range/Units 13:00 05:34 AST 659 H 628 H (5-40) units/L CBC 03/07/17 Range/Units 13:00 WBC 11.7 H (4.5-11.0) K/mm3 RBC 5.09 H (3.65-5.03) M/mm3 Hgb 13.6 (11.8-15.2) gm/dl Hct 41.1 (35.5-45.6) % Plt Count 73 L (140-440) K/mm3 Comprehensive Metabolic Panel 03/07/17 03/08/17 Range/Units 13:00 05:34 Sodium 128 L 128 L (137-145) mmol/L Potassium 5.0 5.3 H (3.6-5.0) mmol/L Chloride 89.0 L 88.5 L (98-107) mmol/L Carbon Dioxide 24 24 (22-30) mmol/L BUN 19 24 H (9-20) mg/dL Creatinine 0.8 D 0.8 (0.8-1.5) mg/dL Glucose 94 66 L (75-100) mg/dL Calcium 10.7 H 10.5 H (8.4-10.2) mg/dL AST 659 H 628 H (5-40) units/L ALT 140 H 138 H (7-56) units/L Alkaline Phosphatase 180 H 186 H (35-129) units/L Total Protein 6.7 6.3 (6.3-8.2) g/dL Albumin 2.5 L 2.6 L (3.9-5) g/dL - Imaging and Cardiology Echo: pending, report reviewed (ef 45% tds no signficant regurtiations ) - Telemetry EKG Rhythm: Sinus Tachycardia (around 110)
--- NOTE | 2017-03-08 11:33 | Vascular Lab Report ---
LOWER EXTREMITY VENOUS DUPLEX: REASON FOR EXAM: Swelling of the lower extremities. COMMENTS ON THE RIGHT: All veins visualized are freely compressible without evidence of internal echogenicity. Flow is spontaneous and phasic throughout. COMMENTS ON THE LEFT: All veins visualized are freely compressible without evidence of internal echogenicity. Flow is spontaneous and phasic throughout. IMPRESSION: No evidence of acute or chronic deep venous thrombosis in either lower extremity.
[2017-03-08] MEDS: cefTRIAXone 1 GM in NACL 0.9% 20 ML IV SCH (12:33)
--- NOTE | 2017-03-08 13:03 | Discharge Summary ---
Providers - Providers Date of Admission: 03/02/17 14:58 Date of discharge: 03/08/17 Attending physician: MARQUISE LARES 03/03/17 10:49 Consult to Physician [CONS] Routine Consulting Provider: SARAH SHANKAR Reason For Exam: LIVER MASSES Place consult to:: DR Shankar Notified:: yes Phone number called:: [phone] Was contact made?: Yes If yes, spoke with:: Rafael Time called:: 11:14 Consult to Physician [CONS] Routine Consulting Provider: THOMAS PIERSON Reason For Exam: LIVER MASS Place consult to:: DR Pierson Notified:: yes Phone number called:: [phone] Was contact made?: Yes If yes, spoke with:: keanu 03/06/17 16:18 Consult to Physician [CONS] Routine Consulting Provider: LEONARDO DAIGLE Reason For Exam: tachycardia Place consult to:: DR. 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 Hospitalization Condition: Serious Hospital course: 56M W no significant pmh who pw n/v and jaundice found to have multiple liver masses liver masses appears to be related to a metastatic process oncology and GI consult appreciated, CT chest, image reviewed, 3 pulmonary nodules appear to be metastatic -sp egd and colonoscopy ; showed 1+esophageal varices, mild erosive antral gastritis, multiple shallow duodenal bulb ulcers, and colon polyps but no suggestion of malignancy -sp liver biopsy and 2.8 liter ascitic removed by paracentesis-w cytology tomorrow -may be multifocal HCC given hep C Ascites s/p paracentesis [2.8 lt removed] follow fluid analysis and cytology dc ivf Tachycardia -EKG show ST -given likely malignancy at increased risk of VTE -obtain CT angio to r/o PE -cardiology consult Bilat lower extremity Edema -obtain doppler -lasix IV biliary obstruction -appears to be due to liver masses, workup as above Hepatitis C infection GI consulted Hyperkalemia kayexalate x1, now resolved Thrombocytopenia stable, likely due to acute on chronic CLD Coagulopathy likely due to CLD, mild and stable htn urgency optmize meds, improved Sepsis/UTI empiric abx, fup urine cx Disposition: DC-01 TO HOME OR SELFCARE Time spent for discharge: 32 min Core Measure Documentation - Palliative Care Palliative Care/ Comfort Measures: Not Applicable - Core Measures Any of the following diagnoses?: none Exam - Constitutional Vitals: Temp Pulse Resp BP Pulse Ox 98.2 F 119 H 22 132/83 97 03/08/17 09:54 03/08/17 10:56 03/08/17 09:54 03/08/17 10:56 03/08/17 09:54 General appearance: Present: mild distress, well-nourished, obese - EENT Eyes: Present: PERRL, EOM intact - Neck Neck: Present: supple, normal ROM - Respiratory Respiratory effort: normal Respiratory: bilateral: diminished, negative: rales, rhonchi, wheezing - Cardiovascular Rhythm: regular Heart Sounds: Present: S1 & S2 - Extremities Extremities: no ischemia Extremity abnormal: edema - Abdominal General gastrointestinal: Present: soft, non-tender, distended, normal bowel sounds - Integumentary Integumentary: Present: clear, warm - Musculoskeletal Musculoskeletal: strength equal bilaterally - Psychiatric Psychiatric: appropriate mood/affect, cooperative - Neurologic Neurologic: moves all extremities Plan Activity: advance as tolerated Diet: advance as tolerated, other (soft diet ,) Additional Instructions: If you have worsening abdominal distention, intractable nausea vomiting, contact M.D. or go to emergency room Follow up with: PRIMARY CARE, [Primary Care Provider] - 3-5 Days LEONARDO DAIGLE MD [Staff Physician] - 7 Days ZENA POPE MD [Staff Physician] - 7 Days THOMAS PIERSON MD [Staff Physician] - 7 Days Forms: AMA Form Prescriptions: Furosemide [Lasix TAB] 40 mg PO QDAY #30 tablet Metoprolol [Lopressor TAB] 100 mg PO BID #60 tablet Spironolactone [Aldactone] 25 mg PO QDAY #30 tablet Zolpidem [Ambien] 5 mg PO QHS PRN #7 tablet PRN Reason: Sleep
--- NOTE | 2017-03-08 13:50 | Hem/Onc Progress Note ---
Assessment and Plan awaiting bx. pt to see dr reid as op Subjective Date of service: 03/08/17 Interval history: Patient without any new complaints.anxious Objective - Constitutional Vitals: Last Vital Signs Temp 98.2 F 03/08/17 09:54 Pulse 119 H 03/08/17 10:56 Resp 22 03/08/17 09:54 BP 132/83 03/08/17 10:56 Pulse Ox 97 03/08/17 09:54 Pain Intensity (0-10): denies any pain Performance status: 2- selfcare, ambulatory - Neck Neck: supple - Respiratory Respiratory effort: Positive: normal Respiratory: bilateral: diminished - Cardiovascular Rhythm: regular - Gastrointestinal General gastrointestinal: Present: distended - Labs Lab Results: Laboratory Results - last 24 hr 03/03/17 03/05/17 03/07/17 18:15 Unknown 13:00 WBC 11.7 H RBC 5.09 H Hgb 13.6 Hct 41.1 MCV 81 L MCH 27 L MCHC 33 RDW 21.7 H Plt Count 73 L Sodium Potassium Chloride Carbon Dioxide Anion Gap BUN Creatinine Estimated GFR BUN/Creatinine Ratio Glucose Calcium Total Bilirubin AST ALT Alkaline Phosphatase Total Protein Albumin Albumin/Globulin Ratio CA 19-9 Antigen 147 H Fluid Total Protein < 3.0 L Fluid Albumin 0.8 03/07/17 03/08/17 13:00 05:34 WBC RBC Hgb Hct MCV MCH MCHC RDW Plt Count Sodium 128 L 128 L Potassium 5.0 5.3 H Chloride 89.0 L 88.5 L Carbon Dioxide 24 24 Anion Gap 20 21 BUN 19 24 H Creatinine 0.8 D 0.8 Estimated GFR > 60 > 60 BUN/Creatinine Ratio 24 30 Glucose 94 66 L Calcium 10.7 H 10.5 H Total Bilirubin 8.80 H 9.30 H AST 659 H 628 H ALT 140 H 138 H Alkaline Phosphatase 180 H 186 H Total Protein 6.7 6.3 Albumin 2.5 L 2.6 L Albumin/Globulin Ratio 0.6 0.7 CA 19-9 Antigen Fluid Total Protein Fluid Albumin
[2017-03-08 14:36] VITALS: BP 135/93
[2017-03-08] MEDS ORDERED: LOPRESSOR PO SCH (22:00)
== END 2017-03-08 14:15 | disposition home or self-care (01) | DRG 871 ==
LOC: ED 09:07 → 3A 14:58
PROVIDERS: ADMIT Internal Medicine; ATTEND Internal Medicine
PROC: 3E0234Z Introduction of Serum, Toxoid and Vaccine into Muscle, Percutaneous Approach (ICD-10-PCS; principal; 2017-03-03)
PROC: 0DB78ZX Excision of Stomach, Pylorus, Via Natural or Artificial Opening Endoscopic, Diagnostic (ICD-10-PCS; 2017-03-05)
PROC: 0DBM8ZZ Excision of Descending Colon, Via Natural or Artificial Opening Endoscopic (ICD-10-PCS; 2017-03-05)
PROC: 0DBN8ZZ Excision of Sigmoid Colon, Via Natural or Artificial Opening Endoscopic (ICD-10-PCS; 2017-03-05)
PROC: 0W9G3ZZ Drainage of Peritoneal Cavity, Percutaneous Approach (ICD-10-PCS; 2017-03-05)
PROC: 0FB03ZX Excision of Liver, Percutaneous Approach, Diagnostic (ICD-10-PCS; 2017-03-06)
DX: A41.9 Sepsis, unspecified organism (principal); K83.1 Obstruction of bile duct; E43 Unspecified severe protein-calorie malnutrition; D68.9 Coagulation defect, unspecified; N39.0 Urinary tract infection, site not specified; R18.8 Other ascites; I85.00 Esophageal varices without bleeding; E80.6 Other disorders of bilirubin metabolism; Z23 Encounter for immunization; R16.0 Hepatomegaly, not elsewhere classified; B19.20 Unspecified viral hepatitis C without hepatic coma; E87.5 Hyperkalemia; D69.6 Thrombocytopenia, unspecified; I16.0 Hypertensive urgency; Z87.891 Personal history of nicotine dependence; I10 Essential (primary) hypertension; K29.70 Gastritis, unspecified, without bleeding; K26.9 Duodenal ulcer, unspecified as acute or chronic, without hemorrhage or perforation; Z68.39 Body mass index [BMI] 39.0-39.9, adult; K63.5 Polyp of colon
CPT/HCPCS: 36415; 47000; 49083; 71250; 71275; 74177; 77012; 80048; 80053; 80074; 81001; 82040; 82106; 82150; 82378; 83690; 84132; 84160; 85025; 85027; 85610; 85730; 86301; 87086; 88112; 88305; 88307; 88342; 89051; 90686; 93005; 93010; 93306; 93970; J0171; J0360; J0696; J1644; J1940; J2250; J2270; J2405; J2704; J3010; J3430; J7030; Q9967